=== PATIENT | male | born 1960 | race American Indian/Alaskan Native ===

== ENCOUNTER 2020-08-06 22:39 | Inpatient (IN) | payer OTHER ==
[2020-08-07 00:08] LABS: Basophils # (Auto) 0.1 K/mm3 (0.0-0.1); Basophils % (Auto) 1.5 % (0.0-1.8); Eosinophils # (Auto) 0.1 K/mm3 (0.0-0.4); Hematocrit 41.6 % (35.5-45.6); Hemoglobin 13.1 gm/dl (11.8-15.2); Lymphocytes # (Auto) 1.5 K/mm3 (1.2-5.4); Mean Corpuscular HGB Conc 32 % (32-34); Mean Corpuscular Volume 74 fl (84-94); Monocytes # (Auto) 0.4 K/mm3 (0.0-0.8); Monocytes % (Auto) 8.1 % (0.0-7.3); Platelet Count 192 K/mm3 (140-440); Red Blood Count 5.66 M/mm3 (3.65-5.03); Red Cell Distribution Width 13.8 % (13.2-15.2)
[2020-08-07 00:13] LABS: BUN/Creatinine Ratio 10; Blood Urea Nitrogen 12 mg/dL (9-20); Calcium 9.9 mg/dL (8.4-10.2); Hemolysis Index 14
[2020-08-07 00:17] LABS: INR 1.11 (0.87-1.13)
--- NOTE | 2020-08-07 01:19 | Cat Scan Report ---
CT head without contrast INDICATION : Headache. TECHNIQUE: Axial imaging performed from the skull apex through the skull base without the use of con trast. All CT examinations performed at this facility utilize dose modulation, iterative reconstruct ion or weight-based dosing, when appropriate, to reduce radiation dose to as low as reasonably achiev able. COMPARISON: None FINDINGS: No acute intracranial hemorrhage or parenchymal abnormality. Ventricles are normal in si ze and appear symmetric. Soft tissues including the orbits appear normal. No acute osseous abnorm ality. Sinuses and mastoid air cells are clear. IMPRESSION: No acute abnormality. Signer Name: Jose Hawk MD Signed: 08/07/2020 1:15 AM Workstation Name: [id number]
[2020-08-07] MEDS ORDERED: cloNIDine 0.2 MG TAB PO ONE (02:48)
[2020-08-07] MEDS ORDERED: ASPIRIN 325 MG TAB PO ONE (04:06)
--- NOTE | 2020-08-07 04:06 | Emergency Department Report ---
ED Neuro Deficit HPI - General Chief Complaint: High BP Stated Complaint: TROUBLE SPEAKING Time Seen by Provider: 08/07/20 03:49 Source: patient Mode of arrival: Ambulatory Limitations: No Limitations - History of Present Illness Initial Comments: 59-year-old male with a past medical history of hypertension and CAD with stent not currently on any meds presents to the hospital complaining of an episode of trouble speaking while at work 3 days ago and some memory problems 2 days ago. Patient states while at work he with think saying 1 thing and something else will come out off topic. His his words were comprehensible. Patient states he left his job and went home to sleep for 2 to 3 hours and he woke up the symptoms have resolved. The next day he had some mild memory issues such as trying to remember his email. Today he denies any neurologic complaints. He is not experiencing any headache, nausea, blurry vision, focal weakness, or numbness. He has been noncompliant with hypertensive medications for at least 1 year and is not currently on aspirin. - Related Data Home Medications: Home Medications Medication Instructions Recorded Confirmed Last Taken No Known Home Medications [No 08/07/20 08/07/20 Unknown Reported Home Medications] Allergies/Adverse Reactions: Allergies Allergy/AdvReac Type Severity Reaction Status Date / Time No Known Allergies Allergy Verified 07/05/14 18:54 ED Review of Systems ROS: Stated complaint: TROUBLE SPEAKING Other details as noted in HPI Comment: All other systems reviewed and negative ED Past Medical Hx - Past Medical History Previous Medical History?: Yes Hx Hypertension: Yes Additional medical history: Cardiac stent - Surgical History Past Surgical History?: Yes Additional Surgical History: Cardiac stent - Social History Smoking Status: Never Smoker Substance Use Type: None - Medications Home Medications: Home Medications Medication Instructions Recorded Confirmed Last Taken Type No Known Home Medications [No 08/07/20 08/07/20 Unknown History Reported Home Medications] ED Neuro Physical Exam - General Limitations: No Limitations Suspected Stroke: Yes - Neurological Exam Neurological exam: Present: alert - NIHSS Assessment Interval: Baseline 1a. Level of Consciousness: alert/keenly responsive 1b. LOC Questions: answers both correctly 1c. LOC Commands: performs tasks correctly 2. Best Gaze: normal 3. Visual: no visual loss 4. Facial Palsy: normal symmetrical movement 5b. Motor Arm Right: no drift 5a. Motor Arm Left: no drift 6a. Motor Leg Left: no drift 6b. Motor Leg Right: no drift 7. Limb Ataxia: absent 8. Sensory: normal 9. Best Language: no aphasia 10. Dysarthria: normal 11. Extinction/Inattention: no abnormality Total Score: 0 Stroke Severity: No Stroke Symptoms - Other Other exam information: General: No acute distress Head: Atraumatic Eyes: normal appearance ENT: Moist mucous membranes Neck: Normal appearance, no midline tenderness Chest: Clear to auscultation bilaterally CV: Regular rate and rhythm Abdomen: Soft, normal bowel sounds, nontender, nondistended, no rebound or guarding Back: Normal inspection Extremity: Normal inspection, full range of motion Neuro: Alert O x 3, no facial asymmetry, speech clear, no gross motor sensory deficit Psych: Appropriate behavior Skin: No rash ED Course Vital Signs 08/06/20 08/07/20 08/07/20 22:48 01:52 01:53 Temperature 98.1 F Pulse Rate 94 H 89 86 Respiratory 20 20 20 Rate Blood Pressure 255/149 Blood Pressure 257/159 [Right] O2 Sat by Pulse 94 96 95 Oximetry 08/07/20 08/07/20 08/07/20 02:00 02:30 02:51 Temperature Pulse Rate 79 73 Respiratory 13 Rate Blood Pressure 245/145 207/119 205/118 Blood Pressure [Right] O2 Sat by Pulse 93 Oximetry 08/07/20 08/07/20 08/07/20 03:00 03:30 04:00 Temperature Pulse Rate 66 63 80 Respiratory 18 17 19 Rate Blood Pressure 209/129 211/123 233/142 Blood Pressure [Right] O2 Sat by Pulse 93 92 97 Oximetry - Consultations Consultation #1: 08/07/20 04:11 Case discussed with teleneuro who will provide a consult. - Lab Data Result diagrams: 08/06/20 23:33 08/06/20 23:33 Lab Results 08/06/20 08/06/20 08/06/20 Range/Units 23:33 23:33 23:33 WBC 4.7 (4.5-11.0) K/mm3 RBC 5.66 H (3.65-5.03) M/mm3 Hgb 13.1 (11.8-15.2) gm/dl Hct 41.6 (35.5-45.6) % MCV 74 L (84-94) fl MCH 23 L (28-32) pg MCHC 32 (32-34) % RDW 13.8 (13.2-15.2) % Plt Count 192 (140-440) K/mm3 Lymph % (Auto) 32.0 (13.4-35.0) % [place] % (Auto) 8.1 H (0.0-7.3) % Eos % (Auto) 3.0 (0.0-4.3) % Baso % (Auto) 1.5 (0.0-1.8) % Lymph # (Auto) 1.5 (1.2-5.4) K/mm3 [facility] # (Auto) 0.4 (0.0-0.8) K/mm3 Eos # (Auto) 0.1 (0.0-0.4) K/mm3 Baso # (Auto) 0.1 (0.0-0.1) K/mm3 Seg Neutrophils % 55.4 (40.0-70.0) % Seg Neutrophils # 2.6 (1.8-7.7) K/mm3 PT 14.5 (12.2-14.9) Sec. INR 1.11 (0.87-1.13) APTT 33.0 (24.2-36.6) Sec. Thrombin Time (15.1-19.6) Sec. Sodium 142 (137-145) mmol/L Potassium 3.9 (3.6-5.0) mmol/L Chloride 101.0 (98-107) mmol/L Carbon Dioxide 28 (22-30) mmol/L Anion Gap 17 mmol/L BUN 12 (9-20) mg/dL Creatinine 1.2 (0.8-1.3) mg/dL Estimated GFR > 60 ml/min BUN/Creatinine Ratio 10 % Glucose 126 H (75-100) mg/dL Calcium 9.9 (8.4-10.2) mg/dL Troponin T < 0.010 (0.00-0.029) ng/mL 08/06/20 Range/Units 23:33 WBC (4.5-11.0) K/mm3 RBC (3.65-5.03) M/mm3 Hgb (11.8-15.2) gm/dl Hct (35.5-45.6) % MCV (84-94) fl MCH (28-32) pg MCHC (32-34) % RDW (13.2-15.2) % Plt Count (140-440) K/mm3 Lymph % (Auto) (13.4-35.0) % [facility] % (Auto) (0.0-7.3) % Eos % (Auto) (0.0-4.3) % Baso % (Auto) (0.0-1.8) % Lymph # (Auto) (1.2-5.4) K/mm3 [facility] [place] # (Auto) (0.0-0.8) K/mm3 Eos # (Auto) (0.0-0.4) K/mm3 Baso # (Auto) (0.0-0.1) K/mm3 Seg Neutrophils % (40.0-70.0) % Seg Neutrophils # (1.8-7.7) K/mm3 PT (12.2-14.9) Sec. INR (0.87-1.13) APTT (24.2-36.6) Sec. Thrombin Time 16.9 (15.1-19.6) Sec. Sodium (137-145) mmol/L Potassium (3.6-5.0) mmol/L Chloride (98-107) mmol/L Carbon Dioxide (22-30) mmol/L Anion Gap mmol/L BUN (9-20) mg/dL Creatinine (0.8-1.3) mg/dL Estimated GFR ml/min BUN/Creatinine Ratio % Glucose (75-100) mg/dL Calcium (8.4-10.2) mg/dL Troponin T (0.00-0.029) ng/mL - EKG Data -: EKG Interpreted by [facility] EKG shows normal: sinus rhythm, ST-T waves (LVH with repolarization) Rate: normal When compared to previous EKG there are: previous EKG unavailable - Radiology Data Radiology results: report reviewed CT head without contrast INDICATION : Headache. TECHNIQUE: Axial imaging performed from the skull apex through the skull base without the use of contrast. All CT examinations performed at this facility utilize dose modulation, iterative reconstruction or weight-based dosing, when appropriate, to reduce radiation dose to as low as reasonably achievable. COMPARISON: None FINDINGS: No acute intracranial hemorrhage or parenchymal abnormality. V entricles are normal in size and appear symmetric. Soft tissues including the orbits appear normal. No acute osseous abnormality. Sinuses and mastoid air cells are clear. IMPRESSION: No acute abnormality. - Medical Decision Making 67-year-old male with a past medical history of hypertension and CAD with stent noncompliant with medications for least 1 year presents to the hospital with probable TIA symptoms and elevated hypertension. EKG shows LVH. Patient denies chest pain. CT head unremarkable patient. Patient received clonidine 0.2 mg without any improvement in his blood pressure with actual increase in blood pressure measurement. Patient will be admitted for hypertensive emergency and stroke work-up and Cardene drip initiated in the ED. telemetry neuro consult obtained in the ED Critical Care Time: Yes Critical care time in (mins) excluding proc time.: 35 Critical care attestation.: If time is entered above; I have spent that time in minutes in the direct care of this critically ill patient, excluding procedure time. ED Disposition Clinical Impression: Hypertensive emergency, TIA (transient ischemic attack), H/O heart artery stent, Noncompliance with medication regimen Disposition: OP ADMIT IP TO THIS HOSP Is pt being admited?: Yes Condition: Stable
--- NOTE | 2020-08-07 04:30 | Consultation ---
History of Present Illness - Reason for Consult Consult date: 08/07/20 ams / intermittent speech difficulty - History of Present Illness [facility] Tele[facility]urology Consult Services Stat Consult Date of Service: 08/07/2020 04:05:04 Impression: Transient Ischemic Attack and hypertensive emergency and suspected hypertensive encephalopathy r/o press r/o tia r/o stroke Comments/Sign-Out: 59 year old man with PMH of hypertension, CAD s/p stent non compliant with antihypertensive medication and antiplatelet therapy presenting w intermittent confusion and memory issues as well as difficulty writing since Wednesday/Wednesday. Presenting w ypertensive emergency ahnd suspected hypertensive encephalopathy r/o press r/o tia r/o stroke CT HEAD: Showed No Acute Hemorrhage or Acute Core Infarct Metrics: [facility] Notification Time: 08/07/2020 04:05:04 Stamp Time: 08/07/2020 04:05:04 Callback Response Time: 08/07/2020 04:08:00 Video Start Time: 08/07/2020 04:12:51 Video End Time: 08/07/2020 04:24:26 Our recommendations are outlined below. Recommendations: Antiplatelet Therapy Initiate Aspirin 325 MG Daily Imaging Studies: MRI Head Without Contrast Echocardiogram - Transthoracic Echocardiogram Therapies: Physical Therapy, Occupational Therapy, Speech Therapy Assessment When Applicable Other WorkUp: Check Urinalysis Disposition: Neurology Follow Up Recommended Sign Out: Discussed with Emergency Department Provider Chief Complaint: intermittent speech difficulty History of Present Illness: Patient is a 59 year old Male. 59 year old man with PMH of hypertension, CAD s/p stent non compliant with antihypertensive medication and antiplatelet therapy presenting w intermittent confusion and memory issues as well as difficulty writing since Wednesday/Wednesday. She feels at his baseline currently but he was asked by family members to please go to the ER. His BP was initially 255/149 and has been receiving clonidine with minimal decreased in BP (and later elevation again). He denies headache or weakness or changes to speech currently. Past Medical History: Hypertension Coronary Artery Disease Anticoagulant use: No Antiplatelet use: No Examination: BP(216/127), Pulse(84), Blood Glucose(123) 1A: Level of Consciousness - Alert; keenly responsive + 0 1B: Ask Month and Age - Both Questions Right + 0 1C: Blink Eyes & Squeeze Hands - Performs Both Tasks + 0 2: Test Horizontal Extraocular Movements - Normal + 0 3: Test Visual Elias - No Visual Loss + 0 4: Test Facial Palsy (Use Grimace if Obtunded) - Normal symmetry + 0 5A: Test Left Arm Motor Drift - No Drift for 10 Seconds + 0 5B: Test Right Arm Motor Drift - No Drift for 10 Seconds + 0 6A: Test Left Leg Motor Drift - No Drift for 5 Seconds + 0 6B: Test Right Leg Motor Drift - No Drift for 5 Seconds + 0 7: Test Limb Ataxia (FNF/Heel-Jay) - No Ataxia + 0 8: Test Sensation - Normal; No sensory loss + 0 9: Test Language/Aphasia - Normal; No aphasia + 0 10: Test Dysarthria - Normal + 0 11: Test Extinction/Inattention - No abnormality + 0 NIHSS Score: 0 Patient/Family was informed the Neurology Consult would happen via TeleHealth consult by way of interactive audio and video telecommunications and consented to receiving care in this manner. Due to the immediate potential for life-threatening deterioration due to underlying acute neurologic illness, I spent 22 minutes providing critical care. This time includes time for face to face visit via telemedicine, review of medical records, imaging studies and discussion of findings with providers, the patient and/or family. Dr Beckie Kamara [facility] Case [id number] Medications and Allergies Allergies Allergy/AdvReac Type Severity Reaction Status Date / Time No Known Allergies Allergy Verified 07/05/14 18:54 Home Medications Medication Instructions Recorded Confirmed Last Taken Type No Known Home Medications [No 08/07/20 08/07/20 Unknown History Reported Home Medications] Active Meds: Active Medications Nicardipine HCl 50 mg/ Sodium (Chloride) 250 mls @ 25 mls/hr IV TITR NOEMI; Protocol Nicardipine/Sodium Chloride (Cardene Drip 40 Mg/200 Ml) 40 mg in 200 mls @ 25 mls/hr IV ONCE ONE Stop: 08/07/20 12:59 Exam - Constitutional Vitals: Temp Pulse Resp BP Pulse Ox 98.1 F 80 19 233/142 97 08/06/20 22:48 08/07/20 04:00 08/07/20 04:00 08/07/20 04:00 08/07/20 04:00 Results - Labs CBC & Chem 7: 08/06/20 23:33 08/06/20 23:33 Labs: Abnormal lab results 08/06/20 08/06/20 Range/Units 23:33 23:33 RBC 5.66 H (3.65-5.03) M/mm3 MCV 74 L (84-94) fl MCH 23 L (28-32) pg [place] % (Auto) 8.1 H (0.0-7.3) % Glucose 126 H (75-100) mg/dL
[2020-08-07] MEDS ORDERED: ONDANSETRON 4 MG/2 ML INJ IV PRN (04:34)
[2020-08-07] MEDS ORDERED: ACETAMINOPHEN 325 MG TAB PO PRN (04:34)
[2020-08-07] MEDS ORDERED: MAGNESIUM HYDROXIDE (MOM) ORAL LIQD UDC PO PRN (04:34)
[2020-08-07] MEDS ORDERED: PROMETHAZINE 25 MG RECT SUPP PR PRN (04:34)
[2020-08-07] MEDS ORDERED: METOCLOPRAMIDE 10 MG TAB PO PRN (04:34)
--- NOTE | 2020-08-07 04:36 | History and Physical Report ---
History of Present Illness Chief complaint: My blood pressure is high and I am talking funny History of present illness: 59 YO Male with HTN, CAD S/P Stent Placement presents to ED for evaluation. Patient states that he has experienced difficulty speaking over the past 3 days with persistent symptoms over the same timeframe. Patient states that he had word finding difficulty while at work followed by an episode of inability to speak. Patient states that he left his job and went home for 3 hours and woke up with resolution of symptoms. Patient states that the symptoms recurred the following day. Patient transported to [facility] via private vehicle for further care and evaluation of the aforementioned symptoms. Patient seen and evaluated in the emergency department. All lab and imaging studies reviewed. Patient found to have neurologic deficit which is consistent with CVA. Patient also found to have hypertensive emergency with a blood pressure of 257/159. Patient admitted to [facility] and initiated on stroke protocol as well as Cardene drip for hypertensive emergency. Patient denies fever, chills, chest pain, palpitations, productive cough, recent ill contacts, blurry vision, vertigo, syncope, trauma, known exposure to COVID-19. No medication listed at time of admission. No prior admission for review. Advanced care planning conducted in ED. Past History Past Medical History: CAD, hypertension Past Surgical History: Other (Cardiac stent placement) Social history: single Family history: no significant family history (See HPI) Medications and Allergies Allergies Allergy/AdvReac Type Severity Reaction Status Date / Time No Known Allergies Allergy Verified 07/05/14 18:54 Home Medications Medication Instructions Recorded Confirmed Last Taken Type No Known Home Medications [No 08/07/20 08/07/20 Unknown History Reported Home Medications] Active Meds: Active Medications Nicardipine HCl 50 mg/ Sodium (Chloride) 250 mls @ 25 mls/hr IV TITR NOEMI; Protocol Nicardipine/Sodium Chloride (Cardene Drip 40 Mg/200 Ml) 40 mg in 200 mls @ 25 mls/hr IV ONCE ONE Stop: 08/07/20 12:59 Review of Systems Constitutional: no weight loss, no weight gain, no fever, no sweats Ears, nose, mouth and throat: no ear pain, no tinnitis, no nose pain, no nasal congestion Cardiovascular: no chest pain, no orthopnea, no palpitations, no rapid/irregular heart beat, no syncope, no lightheadedness Respiratory: no cough, no cough with sputum, no hemoptysis, no shortness of breath Gastrointestinal: no abdominal pain, no vomiting, no diarrhea Genitourinary Male: no hematuria, no flank pain, no discharge, no urinary frequency, no urinary hesitancy Rectal: no pain, no incontinence, no bleeding Musculoskeletal: no neck stiffness, no neck pain, no arm numbness/tingling, no low back pain, no shooting leg pain Integumentary: no rash, no redness, no sores, no wounds, no boils Neurological: change in speech, no head injury, no transient paralysis, no paralysis, no parathesias, no tingling, no tremors, no lack of coordination Psychiatric: no anxiety, no insomnia, no hypersomnia, no change in appetite, no change in libido Endocrine: no cold intolerance, no polyphagia, no polyuria, no excessive sweating Hematologic/Lymphatic: no easy bruising, no easy bleeding, no lymphadenopathy, no lymphedema Allergic/Immunologic: no anaphylaxis, no angioedema Exam - Constitutional Vitals: Temp Pulse Resp BP Pulse Ox 98.1 F 80 19 233/142 97 08/06/20 22:48 08/07/20 04:00 08/07/20 04:00 08/07/20 04:00 08/07/20 04:00 General appearance: Present: mild distress - EENT Eyes: Present: PERRL ENT: hearing intact, clear oral mucosa - Neck Neck: Present: supple, normal ROM - Respiratory Respiratory effort: normal Respiratory: bilateral: CTA - Cardiovascular Heart Sounds: Present: S1 & S2. Absent: rub, click - Extremities Extremities: pulses symmetrical, No edema Peripheral Pulses: within normal limits - Abdominal General gastrointestinal: Present: soft, non-tender, non-distended, normal bowel sounds Male genitourinary: Present: normal - Integumentary Integumentary: Present: clear, warm, dry - Musculoskeletal Musculoskeletal: gait normal, strength equal bilaterally - Psychiatric Psychiatric: appropriate mood/affect, intact judgment & insight - Neurologic Neurologic: CNII-XII intact, moves all extremities HEART Score - HEART Score Troponin: Troponin T < 0.010 ng/mL (0.00-0.029) 08/06/20 23:33 Results - Labs CBC & Chem 7: 08/06/20 23:33 08/06/20 23:33 Labs: Abnormal lab results 08/06/20 08/06/20 Range/Units 23:33 23:33 RBC 5.66 H (3.65-5.03) M/mm3 MCV 74 L (84-94) fl MCH 23 L (28-32) pg Rogers % (Auto) 8.1 H (0.0-7.3) % Glucose 126 H (75-100) mg/dL Assessment and Plan - Patient Problems (1) Hypertensive emergency Current Visit: Yes Status: Acute Plan to address problem: Monitor blood pressure every shift, Cardene drip, goal blood pressure overnight between 165 and 195 mmHg, permissive hypertension overnight. (2) CVA (cerebral vascular accident) Current Visit: Yes Status: Acute Plan to address problem: CVA protocol: CT scan of the head, carotid Doppler, neuro check, seizure precautions, aspiration precautions, physical therapy consulted, Occupational Therapy consulted, speech therapy consulted, antiplatelet therapy, teleneurology consulted in ED, (3) DVT prophylaxis Current Visit: Yes Status: Acute Plan to address problem: SCD to bilateral lower extremities while in bed, patient is ambulatory (4) Advance care planning Current Visit: Yes Status: Acute Plan to address problem: Disease education conducted, patient prognosis discussed, patient is full code, care plan discussed, patient knowledges understanding and agreement with care plan, +30 minutes.
[2020-08-07] MEDS ORDERED: niCARdipine 50 MG in SODIUM CHLORIDE 0.9% 250ML 230 ML IV SCH (05:00)
[2020-08-07] MEDS ORDERED: niCARdipine DRIP 40 MG/200 ML BAG IV ONE (05:00)
[2020-08-07] MEDS: niCARdipine DRIP 40 MG/200 ML BAG IV ONE ×2 (09:43→15:28)
--- NOTE | 2020-08-07 12:19 | Vascular Lab Report ---
BILATERAL CAROTID DOPPLER ULTRASOUND INDICATION : stroke TECHNIQUE: Grayscale and color Doppler imaging performed through the neck. COMPARISON: None FINDINGS: Right: There is no significant atherosclerotic disease. Peak systolic velocity in the CCA is 117 cm /s with end-diastolic velocity of 14 cm/s. Peak systolic velocity in the proximal ICA is 78 cm/s with end-diastolic velocity of 15 cm/s. ICA to CCA ratio is less than 2. There is antegrade flow in the ECA and the vertebral artery. Left: There is no significant atherosclerotic disease. Peak systolic velocity in the CCA is 99 cm/s w ith end-diastolic velocity of 14 cm/s. Peak systolic velocity in the proximal ICA is 97 cm/s with end -diastolic velocity of 20 cm/s. ICA to CCA ratio is less than 2. There is antegrade flow in the ECA and the vertebral artery. IMPRESSION: No hemodynamically significant stenosis by NASCET criteria. Doppler velocities indicate l ess than 50% luminal narrowing bilaterally. Signer Name: Odin Taylor Jr, MD Signed: 08/07/2020 12:14 PM Workstation Name: [id number]
[2020-08-07] MEDS: carvediloL 6.25 MG TAB PO SCH (12:35)
[2020-08-07] MEDS ORDERED: niCARdipine DRIP 40 MG/200 ML BAG ONE (15:26)
[2020-08-08] MEDS: carvediloL 6.25 MG TAB PO SCH (01:54)
[2020-08-08 06:05] LABS: Chol/HDL Ratio 6.42 %
[2020-08-08] MEDS ORDERED: carvediloL 6.25 MG TAB PO SCH (08:38)
[2020-08-08] MEDS ORDERED: carvediloL 25 MG TAB PO SCH (10:00)
[2020-08-08] MEDS ORDERED: amLODIPine 10 MG TAB PO SCH (11:00)
--- NOTE | 2020-08-08 11:02 | Magnetic Resonance Report ---
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 TECHNIQUE: Multiplanar, multisequence MR images of the brain were obtained. COMPARISON: No previous MRI exams available for comparison. FINDINGS: The motion degrades the image quality despite using a fast acquisition sequences. However, there is e xtensive cerebral white matter disease most notably involving the periventricular regions and most co nsistent with microvascular angiopathy. 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 Th e diffusion imaging reveals no evidence of acute infarction. There is mild cerebral atrophy. The ventricular system is correspondingly appropriate in size and con figuration. No extra-axial fluid collections or significant mass effect is identified. CRANIOCERVICAL JUNCTION: No significant abnormality. VASCULAR FLOW-VOIDS: There is medial course of the cavernous segments of the ICAs bilaterally which r epresent a developmental variant. The intracranial vessels grossly demonstrate appropriate signal voi ds. ORBITS: No significant abnormality of visualized orbits. SINUSES / MASTOIDS: There is mild mucosal thickening along the posterior right ethmoid air cells. ADDITIONAL FINDINGS: None. IMPRESSION: 1. There is extensive microvascular angiopathy as described without evidence of acute infarction. Signer Name: Paresh Mcdaniel MD Signed: 08/08/2020 9:13 AM Workstation Name: [id number]
--- NOTE | 2020-08-08 12:13 | Progress Note ---
<ADINAALBERT SageWei - Last Filed: 08/08/20 15:38> Assessment and Plan - Patient Problems (1) Hypertensive encephalopathy Current Visit: Yes Status: Acute Plan to address problem: 08/07 CT head shows no acute intracranial hemorrhage or parenchymal abnormality. 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 Lipitor, aspirin therapy PT/OT consult; ST recommends regular diet with regular/thin liquids. PT consult still pending as pt had a missed variance Aspiration, seizure and fall precautions Blood pressure control, amlodipine and coreg (2) CVA (cerebral vascular accident) Current Visit: Yes Status: Ruled-out Plan to address problem: 08/07 CT head shows no acute intracranial hemorrhage or parenchymal abnormality. 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 Lipitor, aspirin therapy PT/OT consult; ST recommends regular diet with regular/thin liquids. PT consult still pending as pt had a missed variance Aspiration, seizure and fall precautions (3) Hypertensive emergency Current Visit: Yes Status: Acute Plan to address problem: Admit presentation BP 257/159 S/p clonidine and beta-najma in the ED S/p milrinone drip Initiated on CCB and BB for BP control, added ACEi Blood pressure monitor per protocol As needed hydralazine for SBP> 160 (4) H/O heart artery stent Current Visit: Yes Status: Acute Plan to address problem: Statin therapy (5) Noncompliance with medication regimen Current Visit: Yes Status: Acute Plan to address problem: Patient stated that he does not have a PCP Medical compliance encouraged Encouraged to obtain a PCP for outpatient care (6) DVT prophylaxis Current Visit: Yes Status: Acute Plan to address problem: SCDs to bilateral lower extremities while in bed Heparin subcu History Interval history: 59 YO Male with HTN, CAD S/P Stent Placement presents to ED on 08/07 with difficulty speaking for the past 3 days with word finding difficulty while at work followed by an episode of inability to speak. He was in hypertensive emergency with a blood pressure of 257/159 and admitted to [facility] and initiated on stroke protocol as well as Cardene drip for hypertensive emergency. Patient is now on 4T. At the time of examination he does not have any deficits and was able to converse with me. Patient had an MRI brain, echocardiogram and carotid ultrasound today. He states that he also seen by physical therapy today. No acute events reported overnight. Hospitalist Physical - Constitutional Vitals: Temp Pulse Resp BP Pulse Ox 98.8 F 83 16 171/105 95 08/08/20 11:35 08/08/20 11:35 08/08/20 11:35 08/08/20 11:35 08/08/20 11:35 General appearance: Present: no acute distress - EENT Eyes: Present: PERRL, EOM intact ENT: hearing intact, clear oral mucosa, dentition normal - Neck Neck: Present: supple, normal ROM - Respiratory Respiratory effort: normal Respiratory: bilateral: CTA - Cardiovascular Rhythm: regular Heart Sounds: Present: S1 & S2. Absent: systolic murmur, diastolic murmur - Extremities Extremities: no ischemia, pulses intact, pulses symmetrical, No edema, normal temperature, normal color, Full ROM Peripheral Pulses: within normal limits - Abdominal General gastrointestinal: soft, non-tender, non-distended, normal bowel sounds - Integumentary Integumentary: Present: clear, warm, dry - Psychiatric Psychiatric: appropriate mood/affect, cooperative - Neurologic Neurologic: CNII-XII intact, no focal deficits, moves all extremities - Allied Health Allied health notes reviewed: nursing, PT, ST, OT HEART Score - HEART Score Troponin: Troponin T < 0.010 ng/mL (0.00-0.029) 08/06/20 23:33 Results - Labs CBC & Chem 7: 08/06/20 23:33 08/06/20 23:33 Labs: Laboratory Last Values WBC 4.7 K/mm3 (4.5-11.0) 08/06/20 23:33 RBC 5.66 M/mm3 (3.65-5.03) H 08/06/20 23:33 Hgb 13.1 gm/dl (11.8-15.2) 08/06/20 23:33 Hct 41.6 % (35.5-45.6) 08/06/20 23:33 MCV 74 fl (84-94) L 08/06/20 23:33 MCH 23 pg (28-32) L 08/06/20 23:33 MCHC 32 % (32-34) 08/06/20 23:33 RDW 13.8 % (13.2-15.2) 08/06/20 23:33 Plt Count 192 K/mm3 (140-440) 08/06/20 23:33 Lymph % (Auto) 32.0 % (13.4-35.0) 08/06/20 23:33 Jackson % (Auto) 8.1 % (0.0-7.3) H 08/06/20 23:33 Eos % (Auto) 3.0 % (0.0-4.3) 08/06/20 23:33 Baso % (Auto) 1.5 % (0.0-1.8) 08/06/20 23:33 Lymph # (Auto) 1.5 K/mm3 (1.2-5.4) 08/06/20 23:33 Jackson # (Auto) 0.4 K/mm3 (0.0-0.8) 08/06/20 23:33 Eos # (Auto) 0.1 K/mm3 (0.0-0.4) 08/06/20 23:33 Baso # (Auto) 0.1 K/mm3 (0.0-0.1) 08/06/20 23:33 Seg Neutrophils % 55.4 % (40.0-70.0) 08/06/20 23:33 Seg Neutrophils # 2.6 K/mm3 (1.8-7.7) 08/06/20 23:33 PT 14.5 Sec. (12.2-14.9) 08/06/20 23:33 INR 1.11 (0.87-1.13) 08/06/20 23:33 APTT 33.0 Sec. (24.2-36.6) 08/06/20 23:33 Thrombin Time 16.9 Sec. (15.1-19.6) 08/06/20 23:33 Sodium 142 mmol/L (137-145) 08/06/20 23:33 Potassium 3.9 mmol/L (3.6-5.0) 08/06/20 23:33 Chloride 101.0 mmol/L (98-107) 08/06/20 23:33 Carbon Dioxide 28 mmol/L (22-30) 08/06/20 23:33 Anion Gap 17 mmol/L 08/06/20 23:33 BUN 12 mg/dL (9-20) 08/06/20 23:33 Creatinine 1.2 mg/dL (0.8-1.3) 08/06/20 23:33 Estimated GFR > 60 ml/min 08/06/20 23:33 BUN/Creatinine Ratio 10 % 08/06/20 23:33 Glucose 126 mg/dL (75-100) H 08/06/20 23:33 POC Glucose 97 mg/dL (70-105) 08/07/20 23:54 Calcium 9.9 mg/dL (8.4-10.2) 08/06/20 23:33 Troponin T < 0.010 ng/mL (0.00-0.029) 08/06/20 23:33 Triglycerides 140 mg/dL (2-149) 08/08/20 05:10 Cholesterol 212 mg/dL (50-199) H 08/08/20 05:10 LDL Cholesterol Direct 168 mg/dL (50-130) H 08/08/20 05:10 HDL Cholesterol 33 mg/dL (40-59) L 08/08/20 05:10 Cholesterol/HDL Ratio 6.42 % 08/08/20 05:10 Purcell/IV: Voiding Method Toilet IV Catheter Type [Left Hand] Peripheral IV Active Medications - Current Medications Current Medications: Generic Name Dose Route Start Last Admin Trade Name Freq PRN Reason Stop Dose Admin Acetaminophen 650 mg 08/07/20 04:34 Tylenol PO Q4H PRN Pain, Mild (1-3) Amlodipine Besylate 10 mg 08/08/20 11:00 08/08/20 10:30 Amlodipine PO 10 mg QDAY NOEMI Administration Atorvastatin Calcium 40 mg 08/07/20 22:00 08/08/20 01:55 Lipitor PO Not Given QHS NOEMI Bisacodyl 10 mg 08/07/20 04:34 Dulcolax [place] QDAY PRN Constipation Carvedilol 25 mg 08/08/20 10:00 08/08/20 10:30 Coreg PO 25 mg BID NOEMI Administration Magnesium Hydroxide 30 ml 08/07/20 04:34 Milk Of Magnesia PO Q4H PRN Constipation Metoclopramide HCl 10 mg 08/07/20 04:34 Reglan PO Q6H PRN Nausea And Vomiting Ondansetron HCl 4 mg 08/07/20 04:34 Zofran IV Q8H PRN Nausea And Vomiting Promethazine HCl 25 mg 08/07/20 04:34 Phenergan [place] Q6H PRN Nausea And Vomiting Sodium Chloride 10 ml 08/07/20 04:34 Sodium Chloride Flush Syringe 10 Ml IV PRN PRN LINE FLUSH <ALEKSANDER CHAIDEZ - Last Filed: 08/08/20 16:57> Assessment and Plan Assessment and plan: I agree with history, examination and assessment and plan as written by Albert Cullen NP. Neurology recs appreciated MRI shows no new stroke. Control BP. Hospitalist Physical - Constitutional Vitals: Temp Pulse Resp BP Pulse Ox 98.6 F 77 16 174/86 94 08/08/20 16:22 08/08/20 16:22 08/08/20 16:22 08/08/20 16:22 08/08/20 16:22 HEART Score - HEART Score Troponin: Troponin T < 0.010 ng/mL (0.00-0.029) 08/06/20 23:33 Results - Labs CBC & Chem 7: 08/06/20 23:33 08/06/20 23:33 Labs: Laboratory Last Values WBC 4.7 K/mm3 (4.5-11.0) 08/06/20 23:33 RBC 5.66 M/mm3 (3.65-5.03) H 08/06/20 23:33 Hgb 13.1 gm/dl (11.8-15.2) 08/06/20 23:33 Hct 41.6 % (35.5-45.6) 08/06/20 23:33 MCV 74 fl (84-94) L 08/06/20 23:33 MCH 23 pg (28-32) L 08/06/20 23:33 MCHC 32 % (32-34) 08/06/20 23:33 RDW 13.8 % (13.2-15.2) 08/06/20 23:33 Plt Count 192 K/mm3 (140-440) 08/06/20 23:33 Lymph % (Auto) 32.0 % (13.4-35.0) 08/06/20 23:33 Jackson % (Auto) 8.1 % (0.0-7.3) H 08/06/20 23:33 Eos % (Auto) 3.0 % (0.0-4.3) 08/06/20 23:33 Baso % (Auto) 1.5 % (0.0-1.8) 08/06/20 23:33 Lymph # (Auto) 1.5 K/mm3 (1.2-5.4) 08/06/20 23:33 Jackson # (Auto) 0.4 K/mm3 (0.0-0.8) 08/06/20 23:33 Eos # (Auto) 0.1 K/mm3 (0.0-0.4) 08/06/20 23:33 Baso # (Auto) 0.1 K/mm3 (0.0-0.1) 08/06/20 23:33 Seg Neutrophils % 55.4 % (40.0-70.0) 08/06/20 23:33 Seg Neutrophils # 2.6 K/mm3 (1.8-7.7) 08/06/20 23:33 PT 14.5 Sec. (12.2-14.9) 08/06/20 23:33 INR 1.11 (0.87-1.13) 08/06/20 23:33 APTT 33.0 Sec. (24.2-36.6) 08/06/20 23:33 Thrombin Time 16.9 Sec. (15.1-19.6) 08/06/20 23:33 Sodium 142 mmol/L (137-145) 08/06/20 23:33 Potassium 3.9 mmol/L (3.6-5.0) 08/06/20 23:33 Chloride 101.0 mmol/L (98-107) 08/06/20 23:33 Carbon Dioxide 28 mmol/L (22-30) 08/06/20 23:33 Anion Gap 17 mmol/L 08/06/20 23:33 BUN 12 mg/dL (9-20) 08/06/20 23:33 Creatinine 1.2 mg/dL (0.8-1.3) 08/06/20 23:33 Estimated GFR > 60 ml/min 08/06/20 23:33 BUN/Creatinine Ratio 10 % 08/06/20 23:33 Glucose 126 mg/dL (75-100) H 08/06/20 23:33 POC Glucose 99 mg/dL (70-105) 08/08/20 16:37 Calcium 9.9 mg/dL (8.4-10.2) 08/06/20 23:33 Troponin T < 0.010 ng/mL (0.00-0.029) 08/06/20 23:33 Triglycerides 140 mg/dL (2-149) 08/08/20 05:10 Cholesterol 212 mg/dL (50-199) H 08/08/20 05:10 LDL Cholesterol Direct 168 mg/dL (50-130) H 08/08/20 05:10 HDL Cholesterol 33 mg/dL (40-59) L 08/08/20 05:10 Cholesterol/HDL Ratio 6.42 % 08/08/20 05:10 Purcell/IV: Voiding Method Toilet IV Catheter Type [Left Hand] Peripheral IV Active Medications - Current Medications Current Medications: Generic Name Dose Route Start Last Admin Trade Name Freq PRN Reason Stop Dose Admin Acetaminophen 650 mg 08/07/20 04:34 Tylenol PO Q4H PRN Pain, Mild (1-3) Amlodipine Besylate 10 mg 08/08/20 11:00 08/08/20 10:30 Amlodipine PO 10 mg QDAY NOEMI Administration Aspirin 325 mg 08/08/20 13:00 08/08/20 14:52 Aspirin PO 325 mg QDAY NOEMI Administration Atorvastatin Calcium 40 mg 08/07/20 22:00 08/08/20 01:55 Lipitor PO Not Given QHS NOEMI Bisacodyl 10 mg 08/07/20 04:34 Dulcolax TX QDAY PRN Constipation Carvedilol 25 mg 08/08/20 10:00 08/08/20 10:30 Coreg PO 25 mg BID NOEMI Administration Hydralazine HCl 10 mg 08/08/20 12:43 08/08/20 15:46 Apresoline IV 10 mg Q4HR PRN Administration Hypertension Magnesium Hydroxide 30 ml 08/07/20 04:34 Milk Of Magnesia PO Q4H PRN Constipation Metoclopramide HCl 10 mg 08/07/20 04:34 Reglan PO Q6H PRN Nausea And Vomiting Ondansetron HCl 4 mg 08/07/20 04:34 Zofran IV Q8H PRN Nausea And Vomiting Promethazine HCl 25 mg 08/07/20 04:34 Phenergan TX Q6H PRN Nausea And Vomiting Sodium Chloride 10 ml 08/07/20 04:34 Sodium Chloride Flush Syringe 10 Ml IV PRN PRN LINE FLUSH
[2020-08-08] MEDS ORDERED: hydrALAZINE 20 MG/1 ML INJ IV PRN (12:43)
[2020-08-08] MEDS ORDERED: ASPIRIN EC 81 MG TAB PO SCH (13:00)
[2020-08-08] MEDS: ASPIRIN 325 MG TAB PO SCH (14:52)
--- NOTE | 2020-08-08 16:46 | Consultation ---
History of Present Illness Consult date: 08/08/20 Reason for Consult: trouble speaking while at work 3 days ago History of present illness: This is a comprehensive neurological consultation on Mr. Edison Knowles who is a very pleasant 59-year-old gentleman admitted with the symptoms of trouble speaking while at work 3 days ago. He also reported some decreased memory but there was no focal weakness. He reported that he has history of high blood pressure for last 6-7 years and it has not been under well control. He stopped taking his medicine for blood pressure for almost a year. He also has history of coronary artery disease and stent placement. He denied any focal arms or leg weakness while he was admitted. He thinks that he still has some confusion and disorientation but it is slightly getting better. He denied that he ever had any stroke. His MRI of the brain revealed old left fish radiate stroke but there is no evidence of any new stroke at this time.he also admitted that he was not taking any aspirin in the past. His carotid Doppler study did not show any stenotic lesion at this time. 2D echo has been performed but the result is still pending. Past History Past Medical History: CAD, hypertension Past Surgical History: Other (Cardiac stent placement) Social history: single Family history: no significant family history (See HPI) Medications and Allergies Allergies Allergy/AdvReac Type Severity Reaction Status Date / Time No Known Allergies Allergy Verified 08/07/20 07:57 Home Medications Medication Instructions Recorded Confirmed Last Taken Type No Known Home Medications [No 08/07/20 08/07/20 Unknown History Reported Home Medications] Active Meds: Active Medications Acetaminophen (Tylenol) 650 mg PO Q4H PRN PRN Reason: Pain, Mild (1-3) Amlodipine Besylate (Amlodipine) 10 mg PO QDAY [facility] Last Admin: 08/08/20 10:30 Dose: 10 mg Documented by: Aspirin (Aspirin) 325 mg PO QDAY [facility] Last Admin: 08/08/20 14:52 Dose: 325 mg Documented by: Atorvastatin Calcium (Lipitor) 40 mg PO QHS [facility] Last Admin: 08/08/20 01:55 Dose: Not Given Documented by: Bisacodyl (Dulcolax) 10 mg OR QDAY PRN PRN Reason: Constipation Carvedilol (Coreg) 25 mg PO BID [facility] Last Admin: 08/08/20 10:30 Dose: 25 mg Documented by: Hydralazine HCl (Apresoline) 10 mg IV Q4HR PRN PRN Reason: Hypertension Last Admin: 08/08/20 15:46 Dose: 10 mg Documented by: Magnesium Hydroxide (Milk Of Magnesia) 30 ml PO Q4H PRN PRN Reason: Constipation Metoclopramide HCl (Reglan) 10 mg PO Q6H PRN PRN Reason: Nausea And Vomiting Ondansetron HCl (Zofran) 4 mg IV Q8H PRN PRN Reason: Nausea And Vomiting Promethazine HCl (Phenergan) 25 mg OR Q6H PRN PRN Reason: Nausea And Vomiting Sodium Chloride (Sodium Chloride Flush Syringe 10 Ml) 10 ml IV PRN PRN PRN Reason: LINE FLUSH Review of Systems All systems: negative (some confusion and disorientation) Physical Examination - Vital Signs Vital Signs: Vital Signs Temp Pulse Resp BP Pulse Ox 98.1 F 94 H 20 255/149 94 08/06/20 22:48 08/06/20 22:48 08/06/20 22:48 08/06/20 22:48 08/06/20 22:48 - Constitutional General appearance: comfortable - EENT EENT: Present: ATNC, PERRL, hearing intact, vision intact - Neurologic Cranial nerve examination: PERRL, EOMI, V1/V2/V3 grossly intact, face symmetric, tongue midline, intact shoulder shrug Speech examination: intact Sensorimotor examination: intact Detailed sensory examination: intact Posture: other (not tested) Reflex and gait examination: other (not tested) Cerebellar examination: other (normal) Results - Laboratory Findings CBC and BMP: 08/06/20 23:33 08/06/20 23:33 Abnormal Lab Findings: Abnormal Labs 08/06/20 08/06/20 08/08/20 23:33 23:33 05:10 RBC 5.66 H MCV 74 L MCH 23 L [place] % (Auto) 8.1 H Glucose 126 H Cholesterol 212 H LDL Cholesterol Direct 168 H HDL Cholesterol 33 L - Diagnostic Findings Additional findings: MRI of brain revealed old left coronary radiator stroke, no acute changes. Carotid Doppler study is negative for any stenotic lesion. 2D echoreport is pending Assessment and Plan - Patient Problems (1) Hypertensive emergency Current Visit: Yes Status: Acute Plan to address problem: Plan: 1) Keep blood pressure<185/100 millimeters of mercury for 3 days after initiation of symptoms, then bring it down to 130-140/80 millimeters of mercury range with the help of antihypertensive medicine. Patient may need to be consulted by a vice president of news or a enterprise integration developer to figure out what is the best medicine to keep his blood pressure under control and see if he needs any furthe r testing to find out why he has malignant hypertension. I have advised him about salt restriction and exercise at this time. 2) Patient must follow with the primary care physician once he gets discharged. 3) Patient also needs education about compliance of taking his medication and the risk of recurrent symptoms. (2) TIA (transient ischemic attack) Current Visit: Yes Status: Acute Plan to address problem: Plan: 1) It is reasonable that he may have had left hemispheric TIA given the MRI of brain finding which revealed old left fish radiata stroke. His symptoms may have been originated due to malignant hypertension. 2) Continue aspirin and cholesterol-lowering medicine as prescribed but to re emphasize about the compliance of these medication and follow with her local neurologist upon discharge home. 3) Please provide him prevention of secondary stroke education. I discussed at great length with the patient regarding his condition and possible treatment options. I answered multiple questions posed by the patient to his best satisfaction. Patient agreed with the plan. Thank you very much for allowing us in the care of your patient. Please call us if you have any questions. Christal Ramos MD Tele-neurologist [phone]
[2020-08-08] MEDS: VALSARTAN 160MG TAB PO SCH (21:47)
--- NOTE | 2020-08-09 09:14 | Progress Note ---
Assessment and Plan - Patient Problems (1) TIA (transient ischemic attack) Current Visit: Yes Status: Acute Plan to address problem: 08/07 CT head shows no acute intracranial hemorrhage or parenchymal abnormality. 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 Lipitor, aspirin therapy PT/OT consult; ST recommends regular diet with regular/thin liquids. PT consult completed with no acute recommendations. OT consult completed which identified no acute needs at this time. Aspiration, seizure and fall precautions 08/08 RN reported bradycardia after IVP hydralazine was administered Antihypertensive regimen: Hydralazine PO, Coreg, valsartan (2) Hypertensive encephalopathy Current Visit: Yes Status: Acute Plan to address problem: 08/07 CT head shows no acute intracranial hemorrhage or parenchymal abnormality. 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 Lipitor, aspirin therapy PT/OT consult; ST recommends regular diet with regular/thin liquids. PT consult completed with no acute recommendations. OT consult completed which identified no acute needs at this time. Aspiration, seizure and fall precautions 08/08 RN reported bradycardia after IVP hydralazine was administered Antihypertensive regimen: Hydralazine PO, Coreg, valsartan (3) CVA (cerebral vascular accident) Current Visit: Yes Status: Ruled-out Plan to address problem: 08/07 CT head shows no acute intracranial hemorrhage or parenchymal abnormality. 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 Lipitor, aspirin therapy PT/OT consult; ST recommends regular diet with regular/thin liquids. PT consult still pending as pt had a missed variance Aspiration, seizure and fall precautions (4) Hypertensive emergency Current Visit: Yes Status: Acute Plan to address problem: Admit presentation BP 257/159 S/p clonidine and beta-najma in the ED S/p milrinone drip Initiated on CCB and BB for BP control, added ACEi Blood pressure monitor per protocol As needed hydralazine for SBP> 160 (5) H/O heart artery stent Current Visit: Yes Status: Acute Plan to address problem: Statin therapy (6) Noncompliance with medication regimen Current Visit: Yes Status: Acute Plan to address problem: Patient stated that he does not have a PCP Medical compliance encouraged Encouraged to obtain a PCP for outpatient care Spoke to therapeutic case manager on 08/09, Harper, who notified me that the patient was given resources for continued health care and medications earlier this week; therefore CM consult was not placed (7) DVT prophylaxis Current Visit: Yes Status: Acute Plan to address problem: SCDs to bilateral lower extremities while in bed Heparin subcu History Interval history: 59 YO Male with HTN, CAD S/P Stent Placement presents to ED on 08/07 with difficulty speaking for the past 3 days with word finding difficulty while at work followed by an episode of inability to speak. He was in hypertensive emergency with a blood pressure of 257/159 and admitted to IMCU and initiated on stroke protocol as well as Cardene drip for hypertensive emergency. Patient is now on 4T. Patient exhibits no neuro deficits. He still remains hypertensive therefore he was started on valsartan last night and this morning he was started on hydralazine and Coreg. We will continue to monitor and he will have a possible discharge today if his blood pressure is better controlled. 08/08: MRI brain, bilateral carotid US, and echocardiogram completed. Patient remained hypertensive, RN reported bradycardia after hydralazine IVP admin. PT/OT consult completed, no acute recommendations. Hospitalist Physical - Constitutional Vitals: Temp Pulse Resp BP Pulse Ox 98.7 F 77 16 175/107 95 08/09/20 08:16 08/09/20 08:16 08/09/20 08:16 08/09/20 08:16 08/09/20 08:16 General appearance: Present: no acute distress - EENT Eyes: Present: PERRL, EOM intact ENT: hearing intact, clear oral mucosa, dentition normal - Neck Neck: Present: supple, normal ROM - Respiratory Respiratory effort: normal Respiratory: bilateral: CTA - Cardiovascular Rhythm: regular Heart Sounds: Present: S1 & S2. Absent: systolic murmur, diastolic murmur - Extremities Extremities: no ischemia, pulses intact, pulses symmetrical, No edema, normal temperature, normal color, Full ROM - Abdominal General gastrointestinal: soft, non-tender, non-distended, normal bowel sounds - Integumentary Integumentary: Present: clear, warm, dry - Psychiatric Psychiatric: appropriate mood/affect, cooperative - Neurologic Neurologic: CNII-XII intact, no focal deficits, moves all extremities - Allied Health Allied health notes reviewed: nursing HEART Score - HEART Score Troponin: Troponin T < 0.010 ng/mL (0.00-0.029) 08/06/20 23:33 Results - Labs CBC & Chem 7: 08/06/20 23:33 08/06/20 23:33 Labs: Laboratory Last Values WBC 4.7 K/mm3 (4.5-11.0) 08/06/20 23:33 RBC 5.66 M/mm3 (3.65-5.03) H 08/06/20 23:33 Hgb 13.1 gm/dl (11.8-15.2) 08/06/20 23:33 Hct 41.6 % (35.5-45.6) 08/06/20 23:33 MCV 74 fl (84-94) L 08/06/20 23:33 MCH 23 pg (28-32) L 08/06/20 23: MCHC 32 % (32-34) 08/06/20 23:33 RDW 13.8 % (13.2-15.2) 08/06/20 23: Plt Count 192 K/mm3 (140-440) 08/06/20 23:33 Lymph % (Auto) 32.0 % (13.4-35.0) 08/06/20 23:33 Ross % (Auto) 8.1 % (0.0-7.3) H 08/06/20 23:33 Eos % (Auto) 3.0 % (0.0-4.3) 08/06/20 23: Baso % (Auto) 1.5 % (0.0-1.8) 08/06/20 23:33 Lymph # (Auto) 1.5 K/mm3 (1.2-5.4) 08/06/20 23:33 Ross # (Auto) 0.4 K/mm3 (0.0-0.8) 08/06/20 23:33 Eos # (Auto) 0.1 K/mm3 (0.0-0.4) 08/06/20 23:33 Baso # (Auto) 0.1 K/mm3 (0.0-0.1) 08/06/20 23:33 Seg Neutrophils % 55.4 % (40.0-70.0) 08/06/20 23:33 Seg Neutrophils # 2.6 K/mm3 (1.8-7.7) 08/06/20 23:33 PT 14.5 Sec. (12.2-14.9) 08/06/20 23:33 INR 1.11 (0.87-1.13) 08/06/20 23:33 APTT 33.0 Sec. (24.2-36.6) 08/06/20 23:33 Thrombin Time 16.9 Sec. (15.1-19.6) 08/06/20 23:33 Sodium 142 mmol/L (137-145) 08/06/20 23:33 Potassium 3.9 mmol/L (3.6-5.0) 08/06/20 23:33 Chloride 101.0 mmol/L (98-107) 08/06/20 23:33 Carbon Dioxide 28 mmol/L (22-30) 08/06/20 23:33 Anion Gap 17 mmol/L 08/06/20 23:33 BUN 12 mg/dL (9-20) 08/06/20 23:33 Creatinine 1.2 mg/dL (0.8-1.3) 08/06/20 23:33 Estimated GFR > 60 ml/min 08/06/20 23:33 BUN/Creatinine Ratio 10 % 08/06/20 23:33 Glucose 126 mg/dL (75-100) H 08/06/20 23:33 POC Glucose 99 mg/dL (70-105) 08/08/20 16:37 Calcium 9.9 mg/dL (8.4-10.2) 08/06/20 23:33 Troponin T < 0.010 ng/mL (0.00-0.029) 08/06/20 23:33 Triglycerides 140 mg/dL (2-149) 08/08/20 05:10 Cholesterol 212 mg/dL (50-199) H 08/08/20 05:10 LDL Cholesterol Direct 168 mg/dL (50-130) H 08/08/20 05:10 HDL Cholesterol 33 mg/dL (40-59) L 08/08/20 05:10 Cholesterol/HDL Ratio 6.42 % 08/08/20 05:10 - Diagnostic Impressions Diagnostic Impressions: Echocardiogram 08/07/20 04:35 Transthoracic Echocardiogram Indication: Stroke BP: 171/105 HR: 74 Conclusions *Global left ventricular systolic function is normal. *The estimated ejection fraction is 60-65%. *Moderate to severe concentric left ventricular hypertrophy is observed. *There is mild mitral regurgitation. *There is trace tricuspid regurgitation. *A patent foramen ovale is not demonstrated by agitated saline contrast. Findings Left Ventricle: The left ventricular chamber size is normal. Moderate to severe concentric left ventricular hypertrophy is observed. Global left ventricular systolic function is normal. The estimated ejection fraction is 60-65%. Left Atrium: The left atrial chamber size is normal. Right Ventricle: The right ventricular cavity size is normal. The right ventricular global systolic function is normal. Right Atrium: The right atrial cavity size is normal. A patent foramen ovale is not demonstrated by agitated saline contrast. Aortic Valve: The aortic valve is trileaflet. The aortic valve leaflets are moderately thickened. There is no evidence of aortic regurgitation. There is no evidence of aortic stenosis. Mitral Valve: The mitral valve leaflets are mildly thickened. There is mild mitral regurgitation. There is no evidence of mitral stenosis. Tricuspid Valve: There is trace tricuspid regurgitation. No pulmonary hypertension is noted. Pulmonic Valve: There is no evidence of pulmonic regurgitation. Pericardium: There is no pericardial effusion. Aorta: There is no dilatation of the ascending aorta. There is no dilatation of the aortic root. Venous: The inferior vena cava appears normal in size. Contrast: Intravenous agitated saline contrast was used to assess intracardiac shunting. Measurements Chambers 2D Name Value Normal Range IVSd (2D) 1.58 cm (0.6 - 1.1) LVPWd (2D) 1.53 cm (0.6 - 1.1) LVIDd (2D) 4.27 cm (3.7 - 5.6) LVIDs (2D) 2.53 cm (2 - 3.8) LV FS (2D) 40.78 % - EF Teichholz (2D) 71.89 % - Ao root diameter (2D) 2.86 cm (2 - 3.7) Volumes/Mass Name Value Normal Range LA ESV SP 4CH (A/L) 25.43 ml - LA ESV SP 2CH (A/L) 29.74 ml - LA ESV BP (A/L) 27.53 ml - LA ESV BP (A/L) index 15.46 ml/m2 - LA ESV SP 4CH (MOD) 23.62 ml - LA ESV SP 2CH (MOD) 28.82 ml - LA ESV BP (MOD) 26 ml - LA ESV BP (MOD) index 14.61 ml/m2 - Diastolic/Systolic Function Name Value Normal Range MV E-wave Vmax 0.44 m/sec - MV deceleration time 223.73 msec - MV A-wave Vmax 0.85 m/sec - MV E:A ratio 0.51 ratio - Aortic Valve Name Value Normal Range AV Vmax 1.5 m/sec - AV VTI 23.91 cm - AV peak gradient 8.95 mmHg - AV mean gradient 5.42 mmHg - LVOT diameter 2.04 cm - LVOT Vmax 1.32 m/sec - LVOT VTI 21.85 cm - LVOT peak gradient 7 mmHg - LVOT mean gradient 3.8 mmHg - SV LVOT 71.45 ml - BECKY (continuity Vmax) 2.89 cm2 - BECKY (continuity VTI) 2.99 cm2 - Pulmonic Valve/Qp:Qs Name Value Normal Range PV Vmax 0.95 m/sec - PV peak gradient 3.58 mmHg - PV acceleration time 106.57 msec - Purcell/IV: Voiding Method Toilet IV Catheter Type [Left Hand] Peripheral IV Active Medications - Current Medications Current Medications: Generic Name Dose Route Start Last Admin Trade Name Freq PRN Reason Stop Dose Admin Acetaminophen 650 mg 08/07/20 04:34 Tylenol PO Q4H PRN Pain, Mild (1-3) Amlodipine Besylate 10 mg 08/09/20 10:00 Amlodipine PO QDAY [facility] Aspirin 325 mg 08/08/20 13:00 08/08/20 14:52 Aspirin PO 325 mg QDAY [facility] Administration Atorvastatin Calcium 40 mg 08/07/20 22:00 08/08/20 21:47 Lipitor PO 40 mg QHS [facility] Administration Bisacodyl 10 mg 08/07/20 04:34 Dulcolax AK QDAY PRN Constipation Carvedilol 6.25 mg 08/09/20 10:00 Coreg PO BID [facility] Hydralazine HCl 50 mg 08/09/20 08:30 Apresoline PO Q8HR [facility] Magnesium Hydroxide 30 ml 08/07/20 04:34 Milk Of Magnesia PO Q4H PRN Constipation Metoclopramide HCl 10 mg 08/07/20 04:34 Reglan PO Q6H PRN Nausea And Vomiting Ondansetron HCl 4 mg 08/07/20 04:34 Zofran IV Q8H PRN Nausea And Vomiting Promethazine HCl 25 mg 08/07/20 04:34 Phenergan AK Q6H PRN Nausea And Vomiting Sodium Chloride 10 ml 08/07/20 04:34 Sodium Chloride Flush Syringe 10 Ml IV PRN PRN LINE FLUSH Valsartan 160 mg 08/08/20 22:00 08/08/20 21:47 Diovan PO 160 mg BID [facility] Administration
[2020-08-09] MEDS ORDERED: LISINOPRIL 20 MG TAB PO SCH (10:00)
[2020-08-09] MEDS ORDERED: carvediloL 6.25 MG TAB PO SCH (10:00)
[2020-08-09] MEDS ORDERED: amLODIPine 10 MG TAB PO SCH (10:00)
[2020-08-09] MEDS: VALSARTAN 160MG TAB PO SCH (10:52)
[2020-08-09] MEDS: ASPIRIN 325 MG TAB PO SCH (10:52)
[2020-08-09] MEDS: hydrALAZINE 25 MG TAB PO SCH ×2 (10:52→14:57)
[2020-08-09] MEDS ORDERED: hydrALAZINE 25 MG TAB PO SCH (14:00)
--- NOTE | 2020-08-09 15:08 | Discharge Summary ---
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 Patient states that he has experienced difficulty speaking over the past 3 days with persistent symptoms over the same timeframe. Patient states that he had word finding difficulty while at work followed by an episode of inability to speak. Patient states that he left his job and went home for 3 hours and woke up with resolution of symptoms. Patient states that the symptoms recurred the following day. Patient transported to [facility] via private vehicle for further care and evaluation of the aforementioned symptoms. Patient seen and evaluated in the emergency department. All lab and imaging studies reviewed. Patient found to have neurologic deficit which is consistent with CVA. Patient also found to have hypertensive emergency with a blood pressure of 257/159. Patient admitted to [facility] and initiated on stroke protocol as well as Cardene drip for hypertensive emergency. Patient denies fever, chills, chest pain, palpitations, productive cough, recent ill contacts, blurry vision, vertigo, syncope, trauma, known exposure to COVID-19. No medication listed at time of admission. No prior admission for review. Advanced care planning conducted in ED. Patient's blood pressure subsequently improved while on nicardipine drip and patient was transferred to the floors. Brain imaging during this admission showed no acute stroke but patient has old infarct in the brain. Neurology was consulted and suggested aspirin daily. Blood pressure also needs to be better controlled. Patient was started on oral blood pressure medications and his blood pressure has improved. Patient will need to follow-up with his primary medical doctor for blood pressure management. He has been advised to continue to take medications as prescribed. He will continue low-salt diet and continue to monitor blood pressure at home. He agrees with plan and will be discharged home today in a stable condition. Disposition: DC-01 TO HOME OR SELFCARE Time spent for discharge: 40 minutes - Discharge Diagnoses (1) Hypertensive emergency Status: Acute (2) Hypertensive encephalopathy Status: Acute (3) TIA (transient ischemic attack) Status: Acute Core Measure Documentation - Palliative Care Palliative Care/ Comfort Measures: Not Applicable - Core Measures Any of the following diagnoses?: none Exam - Constitutional Vitals: Temp Pulse Resp BP Pulse Ox 97.9 F 81 18 170/108 95 08/09/20 14:54 08/09/20 14:54 08/09/20 14:54 08/09/20 14:54 08/09/20 14:54 General appearance: Present: no acute distress, well-nourished - EENT Eyes: Present: PERRL ENT: hearing intact, clear oral mucosa - Neck Neck: Present: supple, normal ROM - Respiratory Respiratory effort: normal Respiratory: bilateral: CTA - Cardiovascular Heart Sounds: Present: S1 & S2. Absent: rub, click - Extremities Extremities: pulses symmetrical, No edema Peripheral Pulses: within normal limits - Abdominal General gastrointestinal: Present: soft, non-tender, non-distended, normal bowel sounds Male genitourinary: Present: normal - Integumentary Integumentary: Present: clear, warm, dry - Musculoskeletal Musculoskeletal: gait normal, strength equal bilaterally - Psychiatric Psychiatric: appropriate mood/affect, intact judgment & insight - Neurologic Neurologic: CNII-XII intact, moves all extremities Plan Activity: no restrictions Diet: low fat, low cholesterol, low salt Additional Instructions: Continue blood pressure as prescribed. Monitor blood pressure at home with a blood pressure machine. Take low-salt diet. Follow-up with PCP in the office Follow up with: PRIMARY CARE, [Primary Care Provider] - 7 Days Prescriptions: AtorvaSTATin [Lipitor] 40 mg PO QHS #30 tablet amLODIPine 10 mg PO QDAY #30 tablet hydrALAZINE [Apresoline TAB] 50 mg PO Q8HR #90 tablet Aspirin 325 mg PO QDAY #30 tablet cloNIDine [Catapres] 0.1 mg PO PRN #30 tablet carvediloL [Coreg] 6.25 mg PO BID #60 tablet Valsartan [Diovan] 160 mg PO BID #60 tablet
[2020-08-09 15:57] VITALS: BP 153/96
== END 2020-08-09 16:59 | disposition home or self-care (01) | DRG 69 ==
LOC: ED 22:39 → IMCU 08-07 04:34 → CC1 08-07 10:41 → 4A 08-07 23:25
PROVIDERS: ADMIT Internal Medicine; ATTEND Internal Medicine
DX: G45.9 Transient cerebral ischemic attack, unspecified (principal); I16.1 Hypertensive emergency; I67.4 Hypertensive encephalopathy; I10 Essential (primary) hypertension; I25.10 Atherosclerotic heart disease of native coronary artery without angina pectoris; Z95.5 Presence of coronary angioplasty implant and graft; Z91.14 Patient's other noncompliance with medication regimen
CPT/HCPCS: 36415; 70450; 70551; 80048; 80061; 82962; 84484; 85025; 85610; 85670; 85730; 93005; 93306; 93880; G0378; A9270-GY; J0360; J7050

== ENCOUNTER 2020-08-13 08:59 | Inpatient (IN) | payer OTHER ==
--- NOTE | 2020-08-13 09:41 | Emergency Department Report ---
ED Neuro Deficit HPI - General Chief Complaint: High BP Stated Complaint: HIGH BLOOD PRESSURE Time Seen by Provider: 08/13/20 09:18 Source: patient, EMS ( EMS documentation not available at time of chart dictation ), RN notes reviewed, old records reviewed Mode of arrival: Ambulatory Limitations: Language Barrier - History of Present Illness Initial Comments: The patient was evaluated in the emergency department for symptoms described in the history of present illness. He/she was evaluated in the context of the global COVID-19 pandemic, which necessitated consideration that the patient might be at risk for infection with the virus that causes COVID-19. Institutional protocols and algorithms that pertain to the evaluation of patients at risk for COVID-19 are in a state of rapid change based on information released by regulatory bodies including the CDC and federal and state organizations. These policies and algorithms were followed during the patient's care in the emergency department. Please note that these policies, procedures and recommendations changed on a rapid basis. 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 He is not known to myself previously. He appears to have a history of hypertension, high cholesterol, currently on aspirin therapy, and distant history of stroke. He presents to the ER today with a complaint of high blood pressure, and a sensation of "the life has gone out of my right arm." He reports the blood pressure at home was 220s, 250s. He was recently admitted to this hospital for hypertensive urgency/emergency, and nonspecific/resolved speech disturbance, and was evaluated as per our stroke protocol. He had MRI of the brain which was negative for acute findings, but which did demonstrate evidence of old strokes. He also had a carotid duplex which was negative for significant disease. He states today that he felt that at, or around 8:00 AM, he noticed his right hand was clumsy, and he was not able to write correctly. He is not exactly sure what time this started. He thinks he woke up "feeling normally", but is not certain. He also describes the nursing nonspecific sensation of lightheadedness. He describes compliance with his medications. He denies physical pain at this time. He denies radiation of this time. He denies exacerbating or relieving factors at this time. No fever, no cough, no loss of taste or smell, and no urinary symptoms. -: hour(s) Location: right arm History of same: No Place: home Improves With: none Worsens With: none On Anticoagulants: Yes Context: other Associated Symptoms: denies other symptoms, other (As per history of present illness) - Related Data Home Medications: Previous Rx's Medication Instructions Recorded Last Taken Type Aspirin 325 mg PO QDAY #30 tablet 08/09/20 Unknown Rx AtorvaSTATin [Lipitor] 40 mg PO QHS #30 tablet 08/09/20 Unknown Rx Valsartan [Diovan] 160 mg PO BID #60 tablet 08/09/20 Unknown Rx amLODIPine 10 mg PO QDAY #30 tablet 08/09/20 Unknown Rx carvediloL [Coreg] 6.25 mg PO BID #60 tablet 08/09/20 Unknown Rx cloNIDine [Catapres] 0.1 mg PO PRN #30 tablet 08/09/20 Unknown Rx hydrALAZINE [Apresoline TAB] 50 mg PO Q8HR #90 tablet 08/09/20 Unknown Rx Allergies/Adverse Reactions: Allergies Allergy/AdvReac Type Severity Reaction Status Date / Time No Known Allergies Allergy Verified 08/07/20 07:57 ED Review of Systems ROS: Stated complaint: HIGH BLOOD PRESSURE Other details as noted in HPI Constitutional: see HPI Eyes: as per HPI ENT: as per HPI Respiratory: see HPI Cardiovascular: as per HPI Endocrine: see HPI Gastrointestinal: as per HPI Genitourinary: as per HPI Musculoskeletal: as per HPI Skin: as per HPI Neurological: as per HPI Psychiatric: as per HPI Hematological/Lymphatic: as per HPI ED Past Medical Hx - Past Medical History Previous Medical History?: Yes Hx Hypertension: Yes Hx Congestive Heart Failure: No Hx Diabetes: No Hx Asthma: No Hx COPD: No Additional medical history: Cardiac stent - Surgical History Past Surgical History?: Yes Hx Coronary Stent: Yes (1 stent (2018)) Additional Surgical History: Cardiac stent - Social History Smoking Status: Never Smoker - Medications Home Medications: Home Medications Medication Instructions Recorded Confirmed Last Taken Type Aspirin 325 mg PO QDAY #30 tablet 08/09/20 Unknown Rx AtorvaSTATin [Lipitor] 40 mg PO QHS #30 tablet 08/09/20 Unknown Rx Valsartan [Diovan] 160 mg PO BID #60 tablet 08/09/20 Unknown Rx amLODIPine 10 mg PO QDAY #30 tablet 08/09/20 Unknown Rx carvediloL [Coreg] 6.25 mg PO BID #60 tablet 08/09/20 Unknown Rx cloNIDine [Catapres] 0.1 mg PO PRN #30 tablet 08/09/20 Unknown Rx hydrALAZINE [Apresoline TAB] 50 mg PO Q8HR #90 tablet 08/09/20 Unknown Rx ED Neuro Physical Exam - General Limitations: No Limitations General appearance: alert, in no apparent distress Suspected Stroke: No - Head Head exam: Present: atraumatic, normocephalic - Eye Eye exam: Present: normal appearance, EOMI. Absent: nystagmus - ENT ENT exam: Present: normal exam, normal orophraynx, mucous membranes moist, normal external ear exam - Neck Neck exam: Present: normal inspection, full ROM. Absent: tenderness, meningismus - Respiratory Respiratory exam: Present: normal lung sounds bilaterally. Absent: respiratory distress, wheezes, rales, rhonchi, stridor, decreased breath sounds - Cardiovascular Cardiovascular Exam: Present: regular rate, normal rhythm, normal heart sounds. Absent: bradycardia, tachycardia, irregular rhythm, systolic murmur, diastolic murmur, rubs, gallop - GI/Abdominal GI/Abdominal exam: Present: soft, normal bowel sounds. Absent: distended, tenderness, guarding, rebound, rigid, pulsatile mass - Rectal Rectal exam: Present: deferred - Extremities Exam Extremities exam: Present: normal inspection, full ROM, other (2+ pulses noted in the bilateral upper and lower extremities. There is no palpable cord. negative Homans sign. Muscular compartments are soft. The pelvis is stable.). Absent: pedal edema, calf tenderness - Back Exam Back exam: Present: normal inspection, full ROM. Absent: tenderness, CVA tenderness (R), CVA tenderness (L), paraspinal tenderness, vertebral tenderness - Neurological Exam Neurological exam: Present: alert, oriented X3, other (No facial droop. Tongue midline. Extraocular movements intact bilaterally. Facial sensation intact to light touch in V1, V2, V3 distribution bilaterally. 5 and a 5 strength in 4 extremities. Sensation intact to light touch in 4 extremities.). Absent: motor sensory deficit - NIHSS Assessment Interval: Baseline 1a. Level of Consciousness: alert/keenly responsive 1b. LOC Questions: answers both correctly 1c. LOC Commands: performs tasks correctly 2. Best Gaze: normal 3. Visual: no visual loss 4. Facial Palsy: normal symmetrical movement 5b. Motor Arm Right: no drift 5a. Motor Arm Left: no drift 6a. Motor Leg Left: no drift 6b. Motor Leg Right: no drift 7. Limb Ataxia: absent 8. Sensory: normal 9. Best Language: no aphasia 10. Dysarthria: normal 11. Extinction/Inattention: no abnormality Total Score: 0 Stroke Severity: No Stroke Symptoms - Psychiatric Psychiatric exam: Present: normal affect, normal mood - Skin Skin exam: Present: warm, dry, intact, normal color. Absent: rash ED Course Vital Signs 08/13/20 08/13/20 09:13 09:35 Temperature 98.1 F Pulse Rate 92 H Respiratory 18 18 Rate Blood Pressure 155/100 Blood Pressure 150/100 [Right] O2 Sat by Pulse 100 100 Oximetry - Lab Data Result diagrams: 08/13/20 10:07 08/13/20 10:07 Lab Results 08/13/20 08/13/20 08/13/20 Range/Units 10:07 10:07 10:07 WBC 7.0 (4.5-11.0) K/mm3 RBC 5.97 H (3.65-5.03) M/mm3 Hgb 13.7 (11.8-15.2) gm/dl Hct 43.3 (35.5-45.6) % MCV 73 L (84-94) fl MCH 23 L (28-32) pg MCHC 32 (32-34) % RDW 13.5 (13.2-15.2) % Plt Count 216 (140-440) K/mm3 PT 14.7 (12.2-14.9) Sec. INR 1.13 (0.87-1.13) APTT 30.6 (24.2-36.6) Sec. Thrombin Time 16.3 (15.1-19.6) Sec. Sodium 140 (137-145) mmol/L Potassium 5.2 H (3.6-5.0) mmol/L Chloride 102.9 (98-107) mmol/L Carbon Dioxide 30 (22-30) mmol/L Anion Gap 12 mmol/L BUN 17 (9-20) mg/dL Creatinine 1.5 H (0.8-1.3) mg/dL Estimated GFR 58 ml/min BUN/Creatinine Ratio 11 % Glucose 148 H (75-100) mg/dL Calcium 10.0 (8.4-10.2) mg/dL Magnesium 2.00 (1.7-2.3) mg/dL Total Creatine Kinase 56 (55-170) units/L CK-MB (CK-2) 1.2 (0.0-4.0) ng/mL CK-MB (CK-2) Rel Index 2.1 (0-4) Troponin T < 0.010 (0.00-0.029) ng/mL - EKG Data -: EKG Interpreted by Sd EKG shows normal: sinus rhythm Rate: normal 08/13/20 10:58 Sinus rhythm, 84 bpm. Left axis deviation, left anterior fascicular block, left ventricular hypertrophy, poor R wave progression. Abnormal EKG. Not a STEMI. Pseudonormalized T waves V4, V5, nonspecific changes noted when compared to prior EKG. - Radiology Data Radiology results: report reviewed, image reviewed Print Report Referring Physician: OLGA ANAYA Patient Name: TALYA BROOKS Date of : 1960 Sex: Male Report Date: 2020-08-13 Report Status: Finalized Findings [facility] [address] [place] [address] Cat Scan Report Signed Patient: TALYA BROOKS MR#: [id number] 44 : 1960 Acct:[id number] Age/Sex: 59 / M ADM Date: 08/13/20 Loc: ED Attending Dr: Ordering Physician: OLGA ANAYA MD Date of Service: 08/13/20 Procedure(s): CT head/brain wo con Accession Number(s): [id number] cc: OLGA ANAYA MD NONENHANCED CT SCAN OF THE BRAIN: INDICATION: Code stroke TECHNIQUE: Routine CT head without contrast. Sagittal and coronal reformatted images were obtained. All CT scans at this location are performed using CT dose reduction for ALARA by means of automated exposure control. COMPARISON: MR scan of the brain 08/08/2020; CT scan of the head 08/07/2020 FINDINGS: BRAIN / INTRACRANIAL CONTENTS: Hemorrhage:No intracranial hemorrhage; no subarachnoid hemorrhage Stroke mimics: No subdural or epidural hematoma or space taking lesion Acute/subacute territorial infarction: Hoyt-white matter interface: No blurring; normal Insular cortex: Normal Basal ganglia: Normal Wedge shaped parenchymal low density area: Not present Cortical sulci: Not effaced Lacunar infarctions: No acute lacunar infarctions Vasculopathy: Dense middle cerebral artery sign: Not present Internal carotid artery terminus: Normal Basilar artery:Normal Middle cerebral artery branches in the sylvian fissure (Dot sign): Normal Calci fied embolus: Not present ASPECT score: 10 Chronic lesions: Chronic white matter lesions in both cerebral hemispheres more prominent in the left side due to chronic small vessel disease Craniocervical junction:No significant abnormality Orbits:No significant abnormality Paranasal sinuses/mastoids:No significant abnormality Additional findings: None IMPRESSION: No intracerebral hemorrhage No stroke mimics No CT findings to suggest acute territorial infarction This exam was performed as part of a code stroke protocol. The exam was completed at on 08/13/2020 9:03 AM. The exam was reviewed at 9:09 AM Central standard time and ER physician was notified at 9:11 AM Central standard time. Signer Name: Edelmira Curiel MD Signed: 08/13/2020 10:12 AM Workstation Name: [id number] Transcribed By: BS Dictated By: Edelmira Abreu MD Electronically Authenticated By: Edelmira Abreu MD Signed Date/Time: 08/13/20 1012 DD/ 1003 TD/TT: - Medical Decision Making Differential diagnosis, include but not limited to: Stroke, TIA, hypertension Assessment and plan: 59-year-old gentleman, with numerous cardiovascular comorbidities, known history of old stroke as demonstrated on MRI acquired recently, who presents to the ER with a complaint of resolved hypertension, and subjective sensation of right upper extremity clumsiness, and inability to write or use a pen as he normally does. Objectively speaking, he is a GCS of 15, with an NIH score of 0, his examination is not consistent with a large vessel occlusion at this time. I did personally witnessed the patient sign his name on a piece of paper work, and his prescription was legible and he did not appear to be having significant difficulty. However, the patient is insistent that his right upper extremity coordination feels "off." He was evaluated by stroke neurology, , Who also agrees that patient does not meet criteria for TPA, or emergent angiographic imaging. However, admission is recommended for urgent diagnostic work-up and evaluation. We will allow for permissive hypertension in the first 24 hours of symptoms, continue aspirin therapy, I discussed with her hospital physician to coordinate admission. Hospital team is paged, we are waiting for them to call back. Presumptive diagnosis at this time is TIA with hypertension - Core Measures Measure Exclusions: not indicated - Thrombolytic Inclusion/Exclusion Thrombolytic Contraindications: Rapidily Improving s/s Critical care attestation.: If time is entered above; I have spent that time in minutes in the direct care of this critically ill patient, excluding procedure time. ED Disposition Clinical Impression: TIA (transient ischemic attack), Hypertension Disposition: DC09 OP ADMIT IP TO THIS HOSP Is pt being admited?: Yes Does the pt Need Aspirin: Yes Condition: Fair Instructions: Hypertension (ED) Referrals: PRIMARY CARE, [Primary Care Provider] - 3-5 Days
--- NOTE | 2020-08-13 10:09 | Emergency Department Report ---
ED General Adult HPI - General Chief complaint: High BP Stated complaint: HIGH BLOOD PRESSURE Time Seen by Provider: 08/13/20 09:18 Source: EMS Mode of arrival: Ambulatory Limitations: No Limitations - History of Present Illness Severity scale (0 -10): 4 - Related Data Previous Rx's Medication Instructions Recorded Last Taken Type Aspirin 325 mg PO QDAY #30 tablet 08/09/20 Unknown Rx AtorvaSTATin [Lipitor] 40 mg PO QHS #30 tablet 08/09/20 Unknown Rx Valsartan [Diovan] 160 mg PO BID #60 tablet 08/09/20 Unknown Rx amLODIPine 10 mg PO QDAY #30 tablet 08/09/20 Unknown Rx carvediloL [Coreg] 6.25 mg PO BID #60 tablet 08/09/20 Unknown Rx cloNIDine [Catapres] 0.1 mg PO PRN #30 tablet 08/09/20 Unknown Rx hydrALAZINE [Apresoline TAB] 50 mg PO Q8HR #90 tablet 08/09/20 Unknown Rx Allergies Allergy/AdvReac Type Severity Reaction Status Date / Time No Known Allergies Allergy Verified 08/07/20 07:57 ED Review of Systems ROS: Stated complaint: HIGH BLOOD PRESSURE Other details as noted in HPI [facility] Date of Service: 08/13/2020 09:40:42 Impression: Rule Out Acute Ischemic Stroke Transient Ischemic Attack hypertensive urgency Comments/Sign-Out: The patient needs to be admitted for further testing with brain MRI, MRA, echocardiogram. He should be continued on antiplatelet and statin therapy if no contraindications. His blood pressure needs to be lowered gradually. About precipitous drop in blood pressure Metrics: Last Known Well: 08/13/2020 08:00:00 [facility] Notification Time: 08/13/2020 09:40:15 Arrival Time: 08/13/2020 08:59:00 Stamp Time: 08/13/2020 09:40:42 Time First Login Attempt: 08/13/2020 09:44:20 Video Start Time: 08/13/2020 09:44:20 Symptoms: right arm numbness NIHSS Start Assessment Time: 08/13/2020 09:55:47 Patient is not a candidate for Alteplase/Activase. Patient was not deemed candidate for Alteplase/Activase thrombolytics because of nonfocal exam. Video End Time: 08/13/2020 10:06:19 CT head showed no acute hemorrhage or acute core infarct. Clinical Presentation is not Suggestive of Large Vessel Occlusive Disease ED Physician notified of diagnostic impression and management plan on 08/13/2020 10:06:21 Our recommendations are outlined below. Recommendations: Activate Stroke Protocol Admission/Order Set Stroke/Telemetry Floor Neuro Checks Bedside Swallow Eval DVT Prophylaxis IV Fluids, Normal Saline Head of Bed 30 Degrees Euglycemia and Avoid Hyperthermia (PRN Acetaminophen) Antiplatelet Therapy Recommended Routine Consultation with Inhouse Neurology for Follow up Care Sign Out: Discussed with Emergency Department Provider History of Present Illness: Patient is a 60 year old Male. Patient was brought by private transportation with symptoms of right arm numbness 60 year old male with pmhsf HTN, HLD on 4 BP meds , with good compliance . He was LKN at 8 am when he developed right arm tingling and numbness with some weakness but without slurred speech or vision problems. Looks like his symptoms have resolved. His blood pressure was very high upon arrival but it has reduced to 150/100 now.His NIHSS is 0. cthead is negative for bleed, there are no signs of LVO. His BP needs to be lowered gradually. He needs to be admitted for furthe r work up. Last seen normal was within 4.5 hours. There is no history of hemorrhagic complications or intracranial hemorrhage. There is no history of Recent Anticoagulants. There is no history of recent major surgery. There is no history of recent stroke. Past Medical History: Hypertension Hyperlipidemia There is NO history of Diabetes Mellitus There is NO history of Atrial Fibrillation There is NO history of Stroke Antiplatelet use: asa Examination: BP(1150/100), Pulse(92), Blood Glucose(130) 1A: Level of Consciousness - Alert; keenly responsive + 0 1B: Ask Month and Age - Both Questions Right + 0 1C: Blink Eyes & Squeeze Hands - Performs Both Tasks + 0 2: Test Horizontal Extraocular Movements - Normal + 0 3: Test Visual Elias - No Visual Loss + 0 4: Test Facial Palsy (Use Grimace if Obtunded) - Normal symmetry + 0 5A: Test Left Arm Motor Drift - No Drift for 10 Seconds + 0 5B: Test Right Arm Motor Drift - No Drift for 10 Seconds + 0 6A: Test Left Leg Motor Drift - No Drift for 5 Seconds + 0 6B: Test Right Leg Motor Drift - No Drift for 5 Seconds + 0 7: Test Limb Ataxia (FNF/Heel-Jay) - No Ataxia + 0 8: Test Sensation - Normal; No sensory loss + 0 9: Test Language/Aphasia - Normal; No aphasia + 0 10: Test Dysarthria - Normal + 0 11: Test Extinction/Inattention - No abnormality + 0 NIHSS Score: 0 Patient/Family was informed the Neurology Consult would happen via TeleHealth consult by way of interactive audio and video telecommunications and consented to receiving care in this manner. Due to the immediate potential for life-threatening deterioration due to underlying acute neurologic illness, I spent 30 minutes providing critical care. This time includes time for face to face visit via telemedicine, review of medical records, imaging studies and discussion of findings with providers, the patient and/or family. Dr Sanchez Beck [facility] Case [id number] ED Past Medical Hx - Past Medical History Previous Medical History?: Yes Hx Hypertension: Yes Hx Congestive Heart Failure: No Hx Diabetes: No Hx Asthma: No Hx COPD: No Additional medical history: Cardiac stent - Surgical History Past Surgical History?: Yes Hx Coronary Stent: Yes (1 stent (2018)) Additional Surgical History: Cardiac stent - Social History Smoking Status: Never Smoker - Medications Home Medications: Home Medications Medication Instructions Recorded Confirmed Last Taken Type Aspirin 325 mg PO QDAY #30 tablet 08/09/20 Unknown Rx AtorvaSTATin [Lipitor] 40 mg PO QHS #30 tablet 08/09/20 Unknown Rx Valsartan [Diovan] 160 mg PO BID #60 tablet 08/09/20 Unknown Rx amLODIPine 10 mg PO QDAY #30 tablet 08/09/20 Unknown Rx carvediloL [Coreg] 6.25 mg PO BID #60 tablet 08/09/20 Unknown Rx cloNIDine [Catapres] 0.1 mg PO PRN #30 tablet 08/09/20 Unknown Rx hydrALAZINE [Apresoline TAB] 50 mg PO Q8HR #90 tablet 08/09/20 Unknown Rx ED Physical Exam - General Limitations: No Limitations ED Course Vital Signs 08/13/20 08/13/20 09:13 09:35 Temperature 98.1 F Pulse Rate 92 H Respiratory 18 18 Rate Blood Pressure 155/100 Blood Pressure 150/100 [Right] O2 Sat by Pulse 100 100 Oximetry Critical care attestation.: If time is entered above; I have spent that time in minutes in the direct care of this critically ill patient, excluding procedure time. ED Disposition Clinical Impression: TIA (transient ischemic attack) Disposition: OP ADMIT IP TO THIS HOSP Is pt being admited?: Yes Does the pt Need Aspirin: Yes Condition: Fair Referrals: PRIMARY CARE, [Primary Care Provider] - 3-5 Days
--- NOTE | 2020-08-13 10:16 | Cat Scan Report ---
NONENHANCED CT SCAN OF THE BRAIN: INDICATION: Code stroke TECHNIQUE: Routine CT head without contrast. Sagittal and coronal reformatted images were obtained. A ll CT scans at this location are performed using CT dose reduction for ALARA by means of automated ex posure control. COMPARISON: MR scan of the brain 08/08/2020; CT scan of the head 08/07/2020 FINDINGS: BRAIN / INTRACRANIAL CONTENTS: Hemorrhage:No intracranial hemorrhage; no subarachnoid hemorrhage Stroke mimics: No subdural or epidural hematoma or space taking lesion Acute/subacute territorial infarction: Hoyt-white matter interface: No blurring; normal Insular cortex: Normal Basal ganglia: Normal Wedge shaped parenchymal low density area: Not present Cortical sulci: Not effaced Lacunar infarctions: No acute lacunar infarctions Vasculopathy: Dense middle cerebral artery sign: Not present Internal carotid artery terminus: Normal Basilar artery:Normal Middle cerebral artery branches in the sylvian fissure (Dot sign): Normal Calcified embolus: Not present ASPECT score: 10 Chronic lesions: Chronic white matter lesions in both cerebral hemispheres more prominent in the left side due to chronic small vessel disease Craniocervical junction:No significant abnormality Orbits:No significant abnormality Paranasal sinuses/mastoids:No significant abnormality Additional findings: None IMPRESSION: No intracerebral hemorrhage No stroke mimics No CT findings to suggest acute territorial infarction This exam was performed as part of a code stroke protocol. The exam was completed at on 08/13/2020 9: 03 AM. The exam was reviewed at 9:09 AM Central standard time and ER physician was notified at 9:11 A M Central standard time. Signer Name: Edelmira Curiel MD Signed: 08/13/2020 10:12 AM Workstation Name: [id number]
[2020-08-13 10:19] LABS: Hematocrit 43.3 % (35.5-45.6); Hemoglobin 13.7 gm/dl (11.8-15.2); Mean Corpuscular HGB Conc 32 % (32-34); Mean Corpuscular Volume 73 fl (84-94); Platelet Count 216 K/mm3 (140-440); Red Blood Count 5.97 M/mm3 (3.65-5.03); Red Cell Distribution Width 13.5 % (13.2-15.2)
[2020-08-13 10:27] LABS: INR 1.13 (0.87-1.13)
[2020-08-13 10:28] LABS: Partial Thromboplastin Time 30.6 Sec. (24.2-36.6); Thrombin Time 16.3 Sec. (15.1-19.6)
[2020-08-13 10:33] LABS: Creatine Kinase MB 1.2 ng/mL (0.0-4.0)
[2020-08-13 10:35] LABS: BUN/Creatinine Ratio 11; Blood Urea Nitrogen 17 mg/dL (9-20); Hemolysis Index 5
[2020-08-13] MEDS ORDERED: ASPIRIN 81 MG TAB CHEW PO ONE (10:57)
[2020-08-13 11:05] LABS: Basophils % (Manual) 0 % (0.0-1.8); Platelet Estimate Consistent w Auto; RBC Morphology Normal; Total Cells Counted 100
--- NOTE | 2020-08-13 12:48 | History and Physical Report ---
History of Present Illness Date of examination: 08/13/20 Date of admission: 08/13/20 Chief complaint: Right-sided weakness, hypertensive urgency History of present illness: Patient is a 59-year-old male with past medical history of hypertension, CAD status post stent placement in the past. Recently seen in the hospital for aphasia that was ongoing for 3 days. At that time was noted to have hypertensive emergency with blood pressure 257/159 was treated with Cardene drip for hypertensive emergency subsequently discharged on blood pressure medications including clonidine as needed. He reports that he has been compliant with his medication although he tells me that his blood pressure at home this morning was 220, and 250 systolic over 102. He reports that yesterday was 120 systolic. He states that shortly after taking the blood pressure not feeling well he took his medications which he assures me that he takes every day including the clonidine although clonidine was ordered as needed. He reported feeling right hand clumsiness unable to write and feeling unwell. He denied any chest pain nausea vomiting or diarrhea. Recently he had had an MRI which was negative except for old stroke that was revealed. And a carotid Doppler which was also negative. While in the ER his symptoms has started improving. No other complaint reported. On my examination following administration of some blood pressure medication his blood pressure had come down to 140 systolic. - Discharge Diagnoses (1) Hypertensive emergency Status: Acute (2) Hypertensive encephalopathy Status: Acute (3) TIA (transient ischemic attack) Status: Acute General appearance: Present: no acute distress, well-nourished - EENT Eyes: Present: PERRL ENT: hearing intact, clear oral mucosa - Neck Neck: Present: supple, normal ROM - Respiratory Respiratory effort: normal Respiratory: bilateral: CTA - Cardiovascular Heart Sounds: Present: S1 & S2. Absent: rub, click - Extremities Extremities: pulses symmetrical, No edema Peripheral Pulses: within normal limits - Abdominal General gastrointestinal: Present: soft, non-tender, non-distended, normal bowel sounds Male genitourinary: Present: normal - Integumentary Integumentary: Present: clear, warm, dry - Musculoskeletal Musculoskeletal: gait normal, strength equal bilaterally - Psychiatric Psychiatric: appropriate mood/affect, intact judgment & insight - Neurologic Neurologic: CNII-XII intact, moves all extremities Plan Past History Past Medical History: hypertension, stroke, other Past Surgical History: PTCA Social history: no significant social history Family history: no significant family history Medications and Allergies Allergies Allergy/AdvReac Type Severity Reaction Status Date / Time No Known Allergies Allergy Verified 08/07/20 07:57 Home Medications Medication Instructions Recorded Confirmed Last Taken Type Aspirin 325 mg PO QDAY #30 tablet 08/09/20 08/13/20 08/13/20 16:09 Rx AtorvaSTATin [Lipitor] 40 mg PO QHS #30 tablet 08/09/20 08/13/20 08/12/20 Rx Valsartan [Diovan] 160 mg PO BID #60 tablet 08/09/20 08/13/20 08/12/20 Rx amLODIPine 10 mg PO QDAY #30 tablet 08/09/20 08/13/20 08/12/20 Rx carvediloL [Coreg] 6.25 mg PO BID #60 tablet 08/09/20 08/13/20 08/12/20 Rx cloNIDine [Catapres] 0.1 mg PO PRN #30 tablet 08/09/20 08/13/20 08/12/20 Rx hydrALAZINE [Apresoline TAB] 50 mg PO Q8HR #90 tablet 08/09/20 08/13/20 08/12/20 Rx Review of Systems All systems: negative Constitutional: no weight loss, no weight gain, no fever, no chills Cardiovascular: no chest pain, no palpitations, no rapid/irregular heart beat Respiratory: no cough with sputum, no hemoptysis, no dyspnea on exertion Gastrointestinal: no abdominal pain, no constipation, no change in bowel habits, no hematemesis Neurological: weakness (Right-sided), aphasia, change in speech Exam - Physical Exam Narrative exam: VITAL SIGNS: Reviewed. GENERAL: The patient appears normally developed otherwise appears in mild distress vital signs as documented. HEAD: No signs of head trauma. EYES: Pupils are equal. Extraocular motions intact. EARS: Hearing grossly intact. MOUTH: Oropharynx is normal. NECK: No adenopathy, no JVD. CHEST: Chest with clear breath sounds bilaterally. No wheezes, rales, or rhonchi. CARDIAC: Regular rate and rhythm. S1 and S2, without murmurs, gallops, or rubs. VASCULAR: No Edema. Peripheral pulses normal and equal in all extremities. ABDOMEN: Soft, non tender and non distended. No rebound or guarding, and no masses palpated. Bowel Sounds normal. MUSCULOSKELETAL: Good range of motion of all major joints. Extremities without clubbing, cyanosis or edema. NEUROLOGIC EXAM: Alert and oriented x 3 No focal sensory or strength deficits. Speech normal. Follows commands. PSYCHIATRIC: Mood normal. SKIN: detail exam as documented in skin assessment - Constitutional Vitals: Temp Pulse Resp BP Pulse Ox 98.1 F 92 H 18 150/100 100 08/13/20 09:13 08/13/20 09:13 08/13/20 09:35 08/13/20 09:13 08/13/20 09:35 HEART Score - HEART Score Troponin: Troponin T < 0.010 ng/mL (0.00-0.029) 08/13/20 10:07 Results - Labs CBC & Chem 7: 08/13/20 10:07 08/13/20 10:07 Labs: Laboratory Last Values WBC 7.0 K/mm3 (4.5-11.0) 08/13/20 10:07 RBC 5.97 M/mm3 (3.65-5.03) H 08/13/20 10:07 Hgb 13.7 gm/dl (11.8-15.2) 08/13/20 10:07 Hct 43.3 % (35.5-45.6) 08/13/20 10:07 MCV 73 fl (84-94) L 08/13/20 10:07 MCH 23 pg (28-32) L 08/13/20 10:07 MCHC 32 % (32-34) 08/13/20 10:07 RDW 13.5 % (13.2-15.2) 08/13/20 10:07 Plt Count 216 K/mm3 (140-440) 08/13/20 10:07 Add Manual Diff Complete 08/13/20 10:07 Total Counted 100 08/13/20 10:07 Seg Neuts % (Manual) 86.0 % (40.0-70.0) H 08/13/20 10:07 Band Neutrophils % 0 % 08/13/20 10:07 Lymphocytes % (Manual) 9.0 % (13.4-35.0) L 08/13/20 10:07 Reactive Lymphs % (Man) 0 % 08/13/20 10:07 Monocytes % (Manual) 4.0 % (0.0-7.3) 08/13/20 10:07 Eosinophils % (Manual) 1.0 % (0.0-4.3) 08/13/20 10:07 Basophils % (Manual) 0 % (0.0-1.8) 08/13/20 10:07 Metamyelocytes % 0 % 08/13/20 10:07 Myelocytes % 0 % 08/13/20 10:07 Promyelocytes % 0 % 08/13/20 10:07 Blast Cells % 0 % 08/13/20 10:07 Nucleated RBC % Not Reportable 08/13/20 10:07 Seg Neutrophils # Man 6.0 K/mm3 (1.8-7.7) 08/13/20 10:07 Band Neutrophils # 0.0 K/mm3 08/13/20 10:07 Lymphocytes # (Manual) 0.6 K/mm3 (1.2-5.4) L 08/13/20 10:07 Abs React Lymphs (Man) 0.0 K/mm3 08/13/20 10:07 Monocytes # (Manual) 0.3 K/mm3 (0.0-0.8) 08/13/20 10:07 Eosinophils # (Manual) 0.1 K/mm3 (0.0-0.4) 08/13/20 10:07 Basophils # (Manual) 0.0 K/mm3 (0.0-0.1) 08/13/20 10:07 Metamyelocytes # 0.0 K/mm3 08/13/20 10:07 Myelocytes # 0.0 K/mm3 08/13/20 10:07 Promyelocytes # 0.0 K/mm3 08/13/20 10:07 Blast Cells # 0.0 K/mm3 08/13/20 10:07 WBC Morphology Not Reportable 08/13/20 10:07 Hypersegmented Neuts Not Reportable 08/13/20 10:07 Hyposegmented Neuts Not Reportable 08/13/20 10:07 Hypogranular Neuts Not Reportable 08/13/20 10:07 Smudge Cells Not Reportable 08/13/20 10:07 Toxic Granulation Not Reportable 08/13/20 10:07 Toxic Vacuolation Not Reportable 08/13/20 10:07 Dohle Bodies Not Reportable 08/13/20 10:07 Pelger-Huet Anomaly Not Reportable 08/13/20 10:07 Quin Rods Not Reportable 08/13/20 10:07 Platelet Estimate Consistent w auto 08/13/20 10:07 Clumped Platelets Not Reportable 08/13/20 10:07 Plt Clumps, EDTA Not Reportable 08/13/20 10:07 Large Platelets Not Reportable 08/13/20 10:07 Giant Platelets Not Reportable 08/13/20 10:07 Platelet Satelliting Not Reportable 08/13/20 10:07 Plt Morphology Comment Not Reportable 08/13/20 10:07 RBC Morphology Normal 08/13/20 10:07 Dimorphic RBCs Not Reportable 08/13/20 10:07 Polychromasia Not Reportable 08/13/20 10:07 Hypochromasia Not Reportable 08/13/20 10:07 Poikilocytosis Not Reportable 08/13/20 10:07 Anisocytosis Not Reportable 08/13/20 10:07 Microcytosis Not Reportable 08/13/20 10:07 Macrocytosis Not Reportable 08/13/20 10:07 Spherocytes Not Reportable 08/13/20 10:07 Pappenheimer Bodies Not Reportable 08/13/20 10:07 Sickle Cells Not Reportable 08/13/20 10:07 Target Cells Not Reportable 08/13/20 10:07 Tear Drop Cells Not Reportable 08/13/20 10:07 Ovalocytes Not Reportable 08/13/20 10:07 Helmet Cells Not Reportable 08/13/20 10:07 [place] Bodies Not Reportable 08/13/20 10:07 [place] Rings Not Reportable 08/13/20 10:07 [place] Cells Not Reportable 08/13/20 10:07 Bite Cells Not Reportable 08/13/20 10:07 Crenated Cell Not Reportable 08/13/20 10:07 Elliptocytes Not Reportable 08/13/20 10:07 Acanthocytes (Spur) Not Reportable 08/13/20 10:07 Rouleaux Not Reportable 08/13/20 10:07 Hemoglobin C Crystals Not Reportable 08/13/20 10:07 Schistocytes Not Reportable 08/13/20 10:07 Malaria parasites Not Reportable 08/13/20 10:07 Kris Bodies Not Reportable 08/13/20 10:07 Hem Pathologist Commnt No 08/13/20 10:07 PT 14.7 Sec. (12.2-14.9) 08/13/20 10:07 INR 1.13 (0.87-1.13) 08/13/20 10:07 APTT 30.6 Sec. (24.2-36.6) 08/13/20 10:07 Thrombin Time 16.3 Sec. (15.1-19.6) 08/13/20 10:07 Sodium 140 mmol/L (137-145) 08/13/20 10:07 Potassium 5.2 mmol/L (3.6-5.0) H 08/13/20 10:07 Chloride 102.9 mmol/L (98-107) 08/13/20 10:07 Carbon Dioxide 30 mmol/L (22-30) 08/13/20 10:07 Anion Gap 12 mmol/L 08/13/20 10:07 BUN 17 mg/dL (9-20) 08/13/20 10:07 Creatinine 1.5 mg/dL (0.8-1.3) H 08/13/20 10:07 Estimated GFR 58 ml/min 08/13/20 10:07 BUN/Creatinine Ratio 11 % 08/13/20 10:07 Glucose 148 mg/dL (75-100) H 08/13/20 10:07 POC Glucose 121 mg/dL (70-105) H 08/13/20 11:14 Calcium 10.0 mg/dL (8.4-10.2) 08/13/20 10:07 Magnesium 2.00 mg/dL (1.7-2.3) 08/13/20 10:07 Total Creatine Kinase 56 units/L (55-170) 08/13/20 10:07 CK-MB (CK-2) 1.2 ng/mL (0.0-4.0) 08/13/20 10:07 CK-MB (CK-2) Rel Index 2.1 (0-4) 08/13/20 10:07 Troponin T < 0.010 ng/mL (0.00-0.029) 08/13/20 10:07 Purcell/IV: IV Catheter Type [Left Hand] Peripheral IV Assessment and Plan Assessment and plan: Patient is a 59-year-old male with past medical history of hypertension, CAD status post stent placement in the past. Recently seen in the hospital for aphasia that was ongoing for 3 days. At that time was noted to have hypertensive emergency with blood pressure 257/159 was treated with Cardene drip for hypertensive emergency subsequently discharged on blood pressure medications including clonidine as needed. He reports that he has been compliant with his medication although he tells me that his blood pressure at home this morning was 220, and 250 systolic over 102. He reports that yesterday was 120 systolic. He states that shortly after taking the blood pressure not feeling well he took his medications which he assures me that he takes every day including the clonidine although clonidine was ordered as needed. He reported feeling right hand clumsiness unable to write and feeling unwell. He denied any chest pain nausea vomiting or diarrhea. Recently he had had an MRI which was negative except for old stroke that was revealed. And a carotid Doppler which was also negative. While in the ER his symptoms has started improving. No other complaint reported. On my examination following administration of some blood pressure medication his blood pressure had come down to 140 systolic. 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 Advance Directives: Yes Plan of care discussed with patient/family: Yes
[2020-08-13] MEDS ORDERED: METOCLOPRAMIDE 10 MG TAB PO PRN (12:50)
[2020-08-13] MEDS ORDERED: MAGNESIUM HYDROXIDE (MOM) ORAL LIQD UDC PO PRN (12:50)
[2020-08-13] MEDS ORDERED: PROMETHAZINE 25 MG RECT SUPP PR PRN (12:50)
[2020-08-13] MEDS ORDERED: ACETAMINOPHEN 325 MG TAB PO PRN (12:50)
[2020-08-13] MEDS ORDERED: ONDANSETRON 4 MG/2 ML INJ IV PRN (12:50)
[2020-08-13] MEDS ORDERED: cloNIDine 0.1 MG TAB PO SCH (13:00)
[2020-08-13] MEDS ORDERED: hydrALAZINE 25 MG TAB PO SCH (14:00)
--- NOTE | 2020-08-13 15:02 | Consultation ---
History of Present Illness Consult date: 08/13/20 Reason for Consult: CVA Chief complaint: Right hand weakness, transiently. History of present illness: 59 yo male with htn, hld, ?stroke (on aspirin and plavix), who presents with noted changes with the sensation of the right hand this past Wednesday (08/09/2020) but then noted this morning with an elevated blood pressure. He notes that after he got to the hospital is when he noticed that is right hand was weaker (when he trying to sign paperwork) than his normal. Currently, he notes that his right hand is back to baseline. He denies any acute changes in his primary senses, headache, nausea, emesis, vertigo, or chest pain. Medications and Allergies Allergies Allergy/AdvReac Type Severity Reaction Status Date / Time No Known Allergies Allergy Verified 08/07/20 07:57 Home Medications Medication Instructions Recorded Confirmed Last Taken Type Aspirin 325 mg PO QDAY #30 tablet 08/09/20 08/13/20 08/13/20 16:09 Rx AtorvaSTATin [Lipitor] 40 mg PO QHS #30 tablet 08/09/20 08/13/20 08/12/20 Rx Valsartan [Diovan] 160 mg PO BID #60 tablet 08/09/20 08/13/20 08/12/20 Rx amLODIPine 10 mg PO QDAY #30 tablet 08/09/20 08/13/20 08/12/20 Rx carvediloL [Coreg] 6.25 mg PO BID #60 tablet 08/09/20 08/13/20 08/12/20 Rx cloNIDine [Catapres] 0.1 mg PO PRN #30 tablet 08/09/20 08/13/20 08/12/20 Rx hydrALAZINE [Apresoline TAB] 50 mg PO Q8HR #90 tablet 08/09/20 08/13/20 08/12/20 Rx Active Meds: Active Medications Acetaminophen (Tylenol) 650 mg PO Q4H PRN PRN Reason: Pain, Mild (1-3) Amlodipine Besylate (Amlodipine) 10 mg PO QDAY [facility] Aspirin (Aspirin) 325 mg PO QDAY [facility] Atorvastatin Calcium (Lipitor) 40 mg PO QHS NOEMI Bisacodyl (Dulcolax) 10 mg AR QDAY PRN PRN Reason: Constipation Carvedilol (Coreg) 6.25 mg PO BID NOEMI Clonidine HCl (Catapres) 0.1 mg PO PRN NOEMI Hydralazine HCl (Apresoline) 50 mg PO Q8HR [facility] Last Admin: 08/13/20 13:49 Dose: 50 mg Documented by: Magnesium Hydroxide (Milk Of Magnesia) 30 ml PO Q4H PRN PRN Reason: Constipation Metoclopramide HCl (Reglan) 10 mg PO Q6H PRN PRN Reason: Nausea And Vomiting Ondansetron HCl (Zofran) 4 mg IV Q8H PRN PRN Reason: Nausea And Vomiting Promethazine HCl (Phenergan) 25 mg AR Q6H PRN PRN Reason: Nausea And Vomiting Sodium Chloride (Sodium Chloride Flush Syringe 10 Ml) 10 ml IV PRN PRN PRN Reason: LINE FLUSH Valsartan (Diovan) 160 mg PO BID [facility] Review of Systems All systems: negative (except as per HPI;) Physical Examination - Vital Signs Vital Signs: Vital Signs Pulse Ox 99 08/13/20 09:10 - Additional Exam Additional Exam: Gen: nad, well-nourished; Head: normocephalic; Eyes: no gaze deviation; no ptosis; ENT: normal vocalization; CVS: warm and well-perfused; Pulm: no respiratory distress; GI: non-distended, protuberant; Ext: no cyanosis at distal extremities; Skin: no acute rash at distal extremities; Heme: no pathologic bruising or ecchymosis at distal extremities; Neuro: alert, oriented to name, age, month, year, surroundings, no dysarthria, no aphasia, CN 2 - PERRL, visual jett intact, CN 3, 4, 6 - EOMI, CN 5 - facial sensation decreased on left to light touch, CN 7 - facial movement symmetric, CN 8 - hearing grossly intact, CN 9, 10 - uvula midline, CN 11 - shrug symmetric, CN 12 - tongue midline; Motor - at least 5-/5 at left exts and at least 4+/5 at distal RUE and RLE; Sensory - light touch decreased at left arm and at right leg, Cerebellar - fnf /hts intact, Gait - deferred secondary to fall risk; NIHSS (1a.) Level of Consciousness:0 (1b.) LOC Questions:0 (1c.) LOC Commands:0 (2.) Best Gaze:0 (3.) Visual:0 (4.) Facial Palsy:0 (5a.) Motor Arm, Left:0 (5b.) Motor Arm, Right:0 (6a.) Motor Leg, Left:0 (6b.) Motor Leg, Right:0 (7.) Limb Ataxia:0 (8.) Sensory:1 (9.) Best Language:0 (10.) Dysarthria:0 (11.) Extinction and Inattention:0 NIHSS Total Score: 1 Results - Laboratory Findings CBC and BMP: 08/13/20 10:07 08/13/20 10:07 Abnormal Lab Findings: Abnormal Labs 08/13/20 08/13/20 08/13/20 10:07 10:07 11:14 RBC 5.97 H MCV 73 L MCH 23 L Seg Neuts % (Manual) 86.0 H Lymphocytes % (Manual) 9.0 L Lymphocytes # (Manual) 0.6 L Potassium 5.2 H Creatinine 1.5 H Glucose 148 H POC Glucose 121 H Assessment and Plan 59 yo male with htn, hld, ?stroke (on aspirin and plavix), who presents with noted changes with the sensation of the right hand this past Wednesday (08/09/2020) but then noted this morning with an elevated blood pressure wit ntoed weakness of the right extremities. 1. Acute Ischemic Stroke: ASA 325 mg PO qday, Plavix 75 mg PO qday, MRI Brain w/o contrast, MRA Head w/o contrast, TTEcho, CUS, check LDL/HgbA1C/TSH, baseline CXR, EKG; telemetry, SBP goal 160-200 mmHg and DBP 80-100 mmHg for now. Statin therapy for a goal LDL of 70, when patient passes swallow evaluation. PT/OT/ST/Swallow evaluation. Long-term risk-factor modification, including a strict diet/exercise regimen for secondary stroke prophylaxis. 2. Hypertension - goal SBP 160-200 mmHg and DBP 80-200 mmHg until MRA/CUS results are available. 3. Hyperlipidemia - goal LDL of 70 w/ statin therapy if no contraindications. 4. Right-sided weakness - pt/ot evaluation/monitoring. Kory Mercado MD Neurology
[2020-08-13] MEDS: VALSARTAN 160MG TAB PO SCH (21:56)
[2020-08-13] MEDS: METOPROLOL TARTRATE 50 MG TAB PO SCH (21:56)
[2020-08-13] MEDS ORDERED: carvediloL 6.25 MG TAB PO SCH (22:00)
[2020-08-13] MEDS: hydrALAZINE 100 MG TAB PO SCH (22:01)
[2020-08-14] MEDS: hydrALAZINE 100 MG TAB PO SCH ×3 (05:22→21:17)
[2020-08-14 07:00] LABS: Chol/HDL Ratio 4.55 %
--- NOTE | 2020-08-14 09:50 | Magnetic Resonance Report ---
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 TECHNIQUE: Multiplanar, multisequence MR images of the brain were obtained. COMPARISON: The study is compared to the previous MRI of 08/07/2020. FINDINGS: BRAIN / INTRACRANIAL CONTENTS: There has been interval development of a 6 to 7 mm acute infarct invol ving the superior left mary from the earlier MRI. Otherwise, there is continued extensive white matte r disease most consistent with microvascular angiopathy. There is an older infarct involving the left fish radiata. The diffusion imaging reveals no evidence of supratentorial acute infarct. There is mild cerebral atrophy. The ventricular system is unchanged in size and configuration. No ext ra-axial fluid collections or significant mass effect is identified. CRANIOCERVICAL JUNCTION: No significant abnormality. VASCULAR FLOW-VOIDS: No significant abnormality. ORBITS: No significant abnormality of visualized orbits. SINUSES / MASTOIDS: There is mild mucosal thickening within the ethmoid air cells. ADDITIONAL FINDINGS: None. IMPRESSION: 1. There has been interval development of a 6 to 7 mm acute infarct involving the superior left mary from 08/08/2020. 2. There is otherwise continued extensive chronic microvascular angiopathy as described. Signer Name: Paresh Mcdaniel MD Signed: 08/14/2020 9:45 AM Workstation Name: [id number]
[2020-08-14] MEDS ORDERED: ASPIRIN 325 MG TAB PO SCH (10:00)
[2020-08-14] MEDS ORDERED: ASPIRIN 81 MG TAB CHEW PO SCH (10:00)
--- NOTE | 2020-08-14 10:14 | Magnetic Resonance Report ---
MRA HEAD WITHOUT CONTRAST HISTORY: Right-sided weakness. Cerebrovascular accident. Hypertensive patient. Recent MRI brain demon strates acute left-sided pontine infarction. COMPARISON: none TECHNIQUE: Routine MRA of the head performed. 3-D/MIP reformats postprocessed. CONTRAST: none FINDINGS: MRA HEAD: OVERVIEW: There is no evidence of intracranial stenosis or large vessel occlusion. There is no eviden ce of aneurysm or other vascular malformation. Intracranial vertebral arteries: Normal and symmetrical vertebral arteries both contribute to the bas ilar artery origin. Basilar artery: Basilar artery has an unremarkable appearance. Posterior cerebral arteries: Normal and symmetrical appearing posterior cerebral arteries are identif ied. Intracranial internal carotid arteries: No significant abnormality. Anterior cerebral arteries: Bilaterally symmetrical A1 segments of the anterior cerebral arteries are demonstrated. No abnormalities are seen along the course of the A2 segments or visualized pericallos al branches. Middle cerebral arteries: Normal and symmetrical M1 segments are demonstrated bilaterally. No abnorma lities are seen on evaluation of the insular or opercular branches of the middle cerebral arteries. Additional findings: None. IMPRESSION: 1. No significant abnormalities are identified on MRA head. Signer Name: Drew Booth MD Signed: 08/14/2020 10:09 AM Workstation Name: [id number]
[2020-08-14] MEDS: CLOPIDOGREL 75 MG TAB PO SCH (10:55)
[2020-08-14] MEDS: VALSARTAN 160MG TAB PO SCH ×2 (10:55→21:16)
[2020-08-14] MEDS: amLODIPine 10 MG TAB PO SCH (10:55)
[2020-08-14] MEDS: METOPROLOL TARTRATE 50 MG TAB PO SCH ×2 (10:55→21:17)
[2020-08-14] MEDS: ASPIRIN 325 MG TAB PO SCH (10:55)
--- NOTE | 2020-08-14 15:09 | Progress Note ---
Assessment and Plan Assessment and plan: Patient is a 59-year-old male with past medical history of hypertension, CAD status post stent placement in the past. Recently seen in the hospital for aphasia that was ongoing for 3 days. At that time was noted to have hypertensive emergency with blood pressure 257/159 was treated with Cardene drip for hypertensive emergency subsequently discharged on blood pressure medications including clonidine as needed. He reports that he has been compliant with his medication although he tells me that his blood pressure at home this morning was 220, and 250 systolic over 102. He reports that yesterday was 120 systolic. He states that shortly after taking the blood pressure not feeling well he took his medications which he assures me that he takes every day including the clonidine although clonidine was ordered as needed. He reported feeling right hand clumsiness unable to write and feeling unwell. He denied any chest pain nausea vomiting or diarrhea. Recently he had had an MRI which was negative except for old stroke that was revealed. And a carotid Doppler which was also negative. While in the ER his symptoms has started improving. No other complaint reported. On my examination following administration of some blood pressure medication his blood pressure had come down to 140 systolic. MRI- Head IMPRESSION: 1. There has been interval development of a 6 to 7 mm acute infarct involving the superior left mary from 08/08/2020. 2. There is otherwise continued extensive chronic microvascular angiopathy as described. MRA HEAD IMPRESSION: 1. No significant abnormalities are identified on MRA head. Hypertensive emergency Hypertensive encephalopathy with residual right-sided paresis Right-sided hemiparesis DIYA with vasomotor nephropathy CVA- Superior left mary. Advised patient of finding Question of compliance with medications CAD Plan 08/14: Continue statin and ASA and also Plavix. BP is somewhat improved, continue to monitor. Repeat renal studies. Resume home medications Stroke protocol with aspirin and statin We will adjust blood pressure medication for better control I do not think clonidine is an ideal medication for this patient Will change from Coreg to metoprolol 50 twice daily We will up increase hydralazine 200 mg every 8 Continue clonidine as needed We will provide blood pressure education Neurology evaluation Counseling provided to the patient CT of the head reviewed no acute pathology noted Anticipate discharge in a.m. Hospitalist Physical - Constitutional Vitals: Temp Pulse Resp BP Pulse Ox 97.7 F 91 H 24 159/89 92 08/14/20 11:44 08/14/20 11:44 08/14/20 11:44 08/14/20 11:44 08/14/20 11:44 HEART Score - HEART Score Troponin: Troponin T < 0.010 ng/mL (0.00-0.029) 08/13/20 10:07 Results - Labs CBC & Chem 7: 08/13/20 10:07 08/13/20 10:07 Labs: Laboratory Last Values WBC 7.0 K/mm3 (4.5-11.0) 08/13/20 10:07 RBC 5.97 M/mm3 (3.65-5.03) H 08/13/20 10:07 Hgb 13.7 gm/dl (11.8-15.2) 08/13/20 10:07 Hct 43.3 % (35.5-45.6) 08/13/20 10:07 MCV 73 fl (84-94) L 08/13/20 10:07 MCH 23 pg (28-32) L 08/13/20 10:07 MCHC 32 % (32-34) 08/13/20 10:07 RDW 13.5 % (13.2-15.2) 08/13/20 10:07 Plt Count 216 K/mm3 (140-440) 08/13/20 10:07 Add Manual Diff Complete 08/13/20 10:07 Total Counted 100 08/13/20 10:07 Seg Neuts % (Manual) 86.0 % (40.0-70.0) H 08/13/20 10:07 Band Neutrophils % 0 % 08/13/20 10:07 Lymphocytes % (Manual) 9.0 % (13.4-35.0) L 08/13/20 10:07 Reactive Lymphs % (Man) 0 % 08/13/20 10:07 Monocytes % (Manual) 4.0 % (0.0-7.3) 08/13/20 10:07 Eosinophils % (Manual) 1.0 % (0.0-4.3) 08/13/20 10:07 Basophils % (Manual) 0 % (0.0-1.8) 08/13/20 10:07 Metamyelocytes % 0 % 08/13/20 10:07 Myelocytes % 0 % 08/13/20 10:07 Promyelocytes % 0 % 08/13/20 10:07 Blast Cells % 0 % 08/13/20 10:07 Nucleated RBC % Not Reportable 08/13/20 10:07 Seg Neutrophils # Man 6.0 K/mm3 (1.8-7.7) 08/13/20 10:07 Band Neutrophils # 0.0 K/mm3 08/13/20 10:07 Lymphocytes # (Manual) 0.6 K/mm3 (1.2-5.4) L 08/13/20 10:07 Abs React Lymphs (Man) 0.0 K/mm3 08/13/20 10:07 Monocytes # (Manual) 0.3 K/mm3 (0.0-0.8) 08/13/20 10:07 Eosinophils # (Manual) 0.1 K/mm3 (0.0-0.4) 08/13/20 10:07 Basophils # (Manual) 0.0 K/mm3 (0.0-0.1) 08/13/20 10:07 Metamyelocytes # 0.0 K/mm3 08/13/20 10:07 Myelocytes # 0.0 K/mm3 08/13/20 10:07 Promyelocytes # 0.0 K/mm3 08/13/20 10:07 Blast Cells # 0.0 K/mm3 08/13/20 10:07 WBC Morphology Not Reportable 08/13/20 10:07 Hypersegmented Neuts Not Reportable 08/13/20 10:07 Hyposegmented Neuts Not Reportable 08/13/20 10:07 Hypogranular Neuts Not Reportable 08/13/20 10:07 Smudge Cells Not Reportable 08/13/20 10:07 Toxic Granulation Not Reportable 08/13/20 10:07 Toxic Vacuolation Not Reportable 08/13/20 10:07 Dohle Bodies Not Reportable 08/13/20 10:07 Pelger-Huet Anomaly Not Reportable 08/13/20 10:07 Quin Rods Not Reportable 08/13/20 10:07 Platelet Estimate Consistent w auto 08/13/20 10:07 Clumped Platelets Not Reportable 08/13/20 10:07 Plt Clumps, EDTA Not Reportable 08/13/20 10:07 Large Platelets Not Reportable 08/13/20 10:07 Giant Platelets Not Reportable 08/13/20 10:07 Platelet Satelliting Not Reportable 08/13/20 10:07 Plt Morphology Comment Not Reportable 08/13/20 10:07 RBC Morphology Normal 08/13/20 10:07 Dimorphic RBCs Not Reportable 08/13/20 10:07 Polychromasia Not Reportable 08/13/20 10:07 Hypochromasia Not Reportable 08/13/20 10:07 Poikilocytosis Not Reportable 08/13/20 10:07 Anisocytosis Not Reportable 08/13/20 10:07 Microcytosis Not Reportable 08/13/20 10:07 Macrocytosis Not Reportable 08/13/20 10:07 Spherocytes Not Reportable 08/13/20 10:07 Pappenheimer Bodies Not Reportable 08/13/20 10:07 Sickle Cells Not Reportable 08/13/20 10:07 Target Cells Not Reportable 08/13/20 10:07 Tear Drop Cells Not Reportable 08/13/20 10:07 Ovalocytes Not Reportable 08/13/20 10:07 Helmet Cells Not Reportable 08/13/20 10:07 [place] Bodies Not Reportable 08/13/20 10:07 [place] Rings Not Reportable 08/13/20 10:07 Nory Cells Not Reportable 08/13/20 10:07 Bite Cells Not Reportable 08/13/20 10:07 Crenated Cell Not Reportable 08/13/20 10:07 Elliptocytes Not Reportable 08/13/20 10:07 Acanthocytes (Spur) Not Reportable 08/13/20 10:07 Rouleaux Not Reportable 08/13/20 10:07 Hemoglobin C Crystals Not Reportable 08/13/20 10:07 Schistocytes Not Reportable 08/13/20 10:07 Malaria parasites Not Reportable 08/13/20 10:07 Kris Bodies Not Reportable 08/13/20 10:07 Hem Pathologist Commnt No 08/13/20 10:07 PT 14.7 Sec. (12.2-14.9) 08/13/20 10:07 INR 1.13 (0.87-1.13) 08/13/20 10:07 APTT 30.6 Sec. (24.2-36.6) 08/13/20 10:07 Thrombin Time 16.3 Sec. (15.1-19.6) 08/13/20 10:07 Sodium 140 mmol/L (137-145) 08/13/20 10:07 Potassium 5.2 mmol/L (3.6-5.0) H 08/13/20 10:07 Chloride 102.9 mmol/L (98-107) 08/13/20 10:07 Carbon Dioxide 30 mmol/L (22-30) 08/13/20 10:07 Anion Gap 12 mmol/L 08/13/20 10:07 BUN 17 mg/dL (9-20) 08/13/20 10:07 Creatinine 1.5 mg/dL (0.8-1.3) H 08/13/20 10:07 Estimated GFR 58 ml/min 08/13/20 10:07 BUN/Creatinine Ratio 11 % 08/13/20 10:07 Glucose 148 mg/dL (75-100) H 08/13/20 10:07 POC Glucose 121 mg/dL (70-105) H 08/13/20 11:14 Hemoglobin A1c 6.3 % (4-6) H 08/14/20 04:33 Calcium 10.0 mg/dL (8.4-10.2) 08/13/20 10:07 Magnesium 2.00 mg/dL (1.7-2.3) 08/13/20 10:07 Total Creatine Kinase 56 units/L (55-170) 08/13/20 10:07 CK-MB (CK-2) 1.2 ng/mL (0.0-4.0) 08/13/20 10:07 CK-MB (CK-2) Rel Index 2.1 (0-4) 08/13/20 10:07 Troponin T < 0.010 ng/mL (0.00-0.029) 08/13/20 10:07 Triglycerides 122 mg/dL (2-149) 08/14/20 04:33 Cholesterol 132 mg/dL (50-199) 08/14/20 04:33 LDL Cholesterol Direct 88 mg/dL (50-130) 08/14/20 04:33 HDL Cholesterol 29 mg/dL (40-59) L 08/14/20 04:33 Cholesterol/HDL Ratio 4.55 % 08/14/20 04:33 Purcell/IV: Voiding Method Urinal IV Catheter Type [Left Hand] Peripheral IV Active Medications - Current Medications Current Medications: Generic Name Dose Route Start Last Admin Trade Name Freq PRN Reason Stop Dose Admin Acetaminophen 650 mg 08/13/20 12:50 Tylenol PO Q4H PRN Pain, Mild (1-3) Amlodipine Besylate 10 mg 08/14/20 10:00 08/14/20 10:55 Amlodipine PO 10 mg QDAY NOEMI Administration Aspirin 325 mg 08/14/20 10:00 08/14/20 10:55 Aspirin PO 325 mg QDAY NOEMI Administration Atorvastatin Calcium 40 mg 08/13/20 22:00 08/13/20 21:56 Lipitor PO 40 mg QHS NOEMI Administration Bisacodyl 10 mg 08/13/20 12:50 Dulcolax MO QDAY PRN Constipation Clonidine HCl 0.1 mg 08/13/20 13:00 Catapres PO PRN NOEMI Clopidogrel Bisulfate 75 mg 08/14/20 10:00 08/14/20 10:55 Plavix PO 75 mg QDAY NOEMI Administration Hydralazine HCl 100 mg 08/13/20 16:44 08/14/20 05:22 Apresoline PO 100 mg Q8HR NOEMI Administration Magnesium Hydroxide 30 ml 08/13/20 12:50 Milk Of Magnesia PO Q4H PRN Constipation Metoclopramide HCl 10 mg 08/13/20 12:50 Reglan PO Q6H PRN Nausea And Vomiting Metoprolol Tartrate 50 mg 08/13/20 22:00 08/14/20 10:55 Metoprolol PO 50 mg BID NOEMI Administration Ondansetron HCl 4 mg 08/13/20 12:50 Zofran IV Q8H PRN Nausea And Vomiting Promethazine HCl 25 mg 08/13/20 12:50 Phenergan MO Q6H PRN Nausea And Vomiting Sodium Chloride 10 ml 08/13/20 12:50 Sodium Chloride Flush Syringe 10 Ml IV PRN PRN LINE FLUSH Valsartan 160 mg 08/13/20 22:00 08/14/20 10:55 Diovan PO 160 mg BID NOEMI Administration Nutrition/Malnutrition Assess - Dietary Evaluation Nutrition/Malnutrition Findings: Nutrition Notes Start: 08/14/20 11:22 Freq: Status: Active Protocol: Document 08/14/20 11:22 EN (Rec: 08/14/20 11:36 EN [email or web address]) Co-Sign 08/14/20 11:22 LM Nutrition Notes Need for Assessment generated from: MD Order,Education Initial or Follow up Assessment Current Diagnosis Hypertension,Stroke Other Pertinent Diagnosis TIA Current Diet Mechanical Soft Labs/Tests 08/13: K+ 5.2, Cr 1.5, Glu 148 08/14: A1c 6.3, HDL 29 Pertinent Medications Reviewed Height 5 ft 6 in Weight 88.1 kg [place] Body Weight (kg) 64.54 BMI 31.3 Intake Prior to Admission Good Weight Status Obese Subjective/Other Information RD consulted for CVA diet education. RD provided education on heart healthy diet (CVA) and carbohydrates ( pre-diabetes AEB A1c). Pt verbalized understanding. Pt reports eating well [employer] and denies N/V/D and abd pain. Pt reports good appetite and eating well without difficulty . RD noticed full breakfast untouched on table at bedside. Pt awaiting swallow screen by WAGE ADJUSTER prior to diet advancement . Burn Absent Trauma Absent GI Symptoms None Food Allergy No Current % PO Fair (50-74%) Minimum of two criteria No physical signs of malnutrition #2 Nutrition Diagnosis Inadequate oral intake Etiology CVA and TIA diagnosis As Evidenced by Signs and Symptoms awaiting WAGE ADJUSTER consult and untouched breakfast at bedside #1 Nutrition Diagnosis Food and nutrition-related knowledge deficit Etiology no prior education on heart healthy diet and consistent CHO As Evidenced by Signs and Symptoms pt verbalizing questions and need for education, A1C 6.3 Is patient on ventilator? No Is Patient Ambulatory and/or Out of Bed Yes REE-([facility]-ambulatory/OOB) [ 2123.875 [id number]] Kcal/Kg value to use for calculation 20 Approximate Energy Requirements Using 1762 kcal/Kg Calculation Used for Recommendations Kcal/kg Additional Notes Protein: 0.8-1.0 g/kg AdBW 76. 32kg (61-76g) Fluid: 1 ml/kcal Nutrition Intervention Change Diet Order: Continue diet order, advance texture as recommended by WAGE ADJUSTER Teaching Recipient Patient Learning Readiness Good Teaching Methods Discussion,Handout Response to Teaching Verbalize understanding Education Handouts Provided CVA Heart Healthy and Diabetes /Plate method Barriers to Learning No Barriers RD phone number provided Yes Patient aware of follow up options Yes Goal #1 Meet 75% of energy and protein needs Anticipated Discharge Needs: unable to determine at this time Follow-Up By: 08/16/20 Additional Comments F/u for intakes and diet texture advancement
--- NOTE | 2020-08-14 15:11 | Progress Note ---
Assessment and Plan Assessment and plan: Patient is a 59-year-old male with past medical history of hypertension, CAD status post stent placement in the past. Recently seen in the hospital for aphasia that was ongoing for 3 days. At that time was noted to have hypertensive emergency with blood pressure 257/159 was treated with Cardene drip for hypertensive emergency subsequently discharged on blood pressure medications including clonidine as needed. He reports that he has been compliant with his medication although he tells me that his blood pressure at home this morning was 220, and 250 systolic over 102. He reports that yesterday was 120 systolic. He states that shortly after taking the blood pressure not feeling well he took his medications which he assures me that he takes every day including the clonidine although clonidine was ordered as needed. He reported feeling right hand clumsiness unable to write and feeling unwell. He denied any chest pain nausea vomiting or diarrhea. Recently he had had an MRI which was negative except for old stroke that was revealed. And a carotid Doppler which was also negative. While in the ER his symptoms has started improving. No other complaint reported. On my examination following administration of some blood pressure medication his blood pressure had come down to 140 systolic. MRI- Head IMPRESSION: 1. There has been interval development of a 6 to 7 mm acute infarct involving the superior left mary from 08/08/2020. 2. There is otherwise continued extensive chronic microvascular angiopathy as described. MRA HEAD IMPRESSION: 1. No significant abnormalities are identified on MRA head. Hypertensive emergency Hypertensive encephalopathy with residual right-sided paresis Right-sided hemiparesis DIYA with vasomotor nephropathy Hyperkalemia CVA- Superior left mary. Advised patient of finding Question of compliance with medications CAD Plan 08/14: Continue Statin and ASA and also Plavix. BP is somewhat improved, continue to monitor. Repeat renal studies. Resume home medications Stroke protocol with aspirin and statin We will adjust blood pressure medication for better control I do not think clonidine is an ideal medication for this patient Will change from Coreg to metoprolol 50 twice daily We will up increase hydralazine 200 mg every 8 Continue clonidine as needed We will provide blood pressure education Neurology evaluation Counseling provided to the patient CT of the head reviewed no acute pathology noted Anticipate discharge in a.m. History Interval history: Patient seen and examined resting comfortable, no new complaints Hospitalist Physical - Physical exam Narrative exam: VITAL SIGNS: Reviewed. GENERAL: The patient appears normally developed otherwise, no distress vital signs as documented. HEAD: No signs of head trauma. EYES: Pupils are equal. Extraocular motions intact. EARS: Hearing grossly intact. MOUTH: Oropharynx is normal. NECK: No adenopathy, no JVD. CHEST: Chest with clear breath sounds bilaterally. No wheezes, rales, or rhonchi. CARDIAC: Regular rate and rhythm. S1 and S2, without murmurs, gallops, or rubs. VASCULAR: No Edema. Peripheral pulses normal and equal in all extremities. ABDOMEN: Soft, non tender and non distended. No rebound or guarding, and no masses palpated. Bowel Sounds normal. MUSCULOSKELETAL: Good range of motion of all major joints. Extremities without clubbing, cyanosis or edema. NEUROLOGIC EXAM: Alert and oriented x 3 No focal sensory or strength deficits. Speech normal. Follows commands. PSYCHIATRIC: Mood normal. SKIN: detail exam as documented in skin assessment - Constitutional Vitals: Temp Pulse Resp BP Pulse Ox 97.7 F 91 H 24 159/89 92 08/14/20 11:44 08/14/20 11:44 08/14/20 11:44 08/14/20 11:44 08/14/20 11:44 HEART Score - HEART Score Troponin: Troponin T < 0.010 ng/mL (0.00-0.029) 08/13/20 10:07 Results - Labs CBC & Chem 7: 08/13/20 10:07 08/13/20 10:07 Labs: Laboratory Last Values WBC 7.0 K/mm3 (4.5-11.0) 08/13/20 10:07 RBC 5.97 M/mm3 (3.65-5.03) H 08/13/20 10:07 Hgb 13.7 gm/dl (11.8-15.2) 08/13/20 10:07 Hct 43.3 % (35.5-45.6) 08/13/20 10:07 MCV 73 fl (84-94) L 08/13/20 10:07 MCH 23 pg (28-32) L 08/13/20 10:07 MCHC 32 % (32-34) 08/13/20 10:07 RDW 13.5 % (13.2-15.2) 08/13/20 10:07 Plt Count 216 K/mm3 (140-440) 08/13/20 10:07 Add Manual Diff Complete 08/13/20 10:07 Total Counted 100 08/13/20 10:07 Seg Neuts % (Manual) 86.0 % (40.0-70.0) H 08/13/20 10:07 Band Neutrophils % 0 % 08/13/20 10:07 Lymphocytes % (Manual) 9.0 % (13.4-35.0) L 08/13/20 10:07 Reactive Lymphs % (Man) 0 % 08/13/20 10:07 Monocytes % (Manual) 4.0 % (0.0-7.3) 08/13/20 10:07 Eosinophils % (Manual) 1.0 % (0.0-4.3) 08/13/20 10:07 Basophils % (Manual) 0 % (0.0-1.8) 08/13/20 10:07 Metamyelocytes % 0 % 08/13/20 10:07 Myelocytes % 0 % 08/13/20 10:07 Promyelocytes % 0 % 08/13/20 10:07 Blast Cells % 0 % 08/13/20 10:07 Nucleated RBC % Not Reportable 08/13/20 10:07 Seg Neutrophils # Man 6.0 K/mm3 (1.8-7.7) 08/13/20 10:07 Band Neutrophils # 0.0 K/mm3 08/13/20 10:07 Lymphocytes # (Manual) 0.6 K/mm3 (1.2-5.4) L 08/13/20 10:07 Abs React Lymphs (Man) 0.0 K/mm3 08/13/20 10:07 Monocytes # (Manual) 0.3 K/mm3 (0.0-0.8) 08/13/20 10:07 Eosinophils # (Manual) 0.1 K/mm3 (0.0-0.4) 08/13/20 10:07 Basophils # (Manual) 0.0 K/mm3 (0.0-0.1) 08/13/20 10:07 Metamyelocytes # 0.0 K/mm3 08/13/20 10:07 Myelocytes # 0.0 K/mm3 08/13/20 10:07 Promyelocytes # 0.0 K/mm3 08/13/20 10:07 Blast Cells # 0.0 K/mm3 08/13/20 10:07 WBC Morphology Not Reportable 08/13/20 10:07 Hypersegmented Neuts Not Reportable 08/13/20 10:07 Hyposegmented Neuts Not Reportable 08/13/20 10:07 Hypogranular Neuts Not Reportable 08/13/20 10:07 Smudge Cells Not Reportable 08/13/20 10:07 Toxic Granulation Not Reportable 08/13/20 10:07 Toxic Vacuolation Not Reportable 08/13/20 10:07 Dohle Bodies Not Reportable 08/13/20 10:07 Pelger-Huet Anomaly Not Reportable 08/13/20 10:07 Quin Rods Not Reportable 08/13/20 10:07 Platelet Estimate Consistent w auto 08/13/20 10:07 Clumped Platelets Not Reportable 08/13/20 10:07 Plt Clumps, EDTA Not Reportable 08/13/20 10:07 Large Platelets Not Reportable 08/13/20 10:07 Giant Platelets Not Reportable 08/13/20 10:07 Platelet Satelliting Not Reportable 08/13/20 10:07 Plt Morphology Comment Not Reportable 08/13/20 10:07 RBC Morphology Normal 08/13/20 10:07 Dimorphic RBCs Not Reportable 08/13/20 10:07 Polychromasia Not Reportable 08/13/20 10:07 Hypochromasia Not Reportable 08/13/20 10:07 Poikilocytosis Not Reportable 08/13/20 10:07 Anisocytosis Not Reportable 08/13/20 10:07 Microcytosis Not Reportable 08/13/20 10:07 Macrocytosis Not Reportable 08/13/20 10:07 Spherocytes Not Reportable 08/13/20 10:07 Pappenheimer Bodies Not Reportable 08/13/20 10:07 Sickle Cells Not Reportable 08/13/20 10:07 Target Cells Not Reportable 08/13/20 10:07 Tear Drop Cells Not Reportable 08/13/20 10:07 Ovalocytes Not Reportable 08/13/20 10:07 Helmet Cells Not Reportable 08/13/20 10:07 Holder-Holt Bodies Not Reportable 08/13/20 10:07 [place] Rings Not Reportable 08/13/20 10:07 Nory Cells Not Reportable 08/13/20 10:07 Bite Cells Not Reportable 08/13/20 10:07 Crenated Cell Not Reportable 08/13/20 10:07 Elliptocytes Not Reportable 08/13/20 10:07 Acanthocytes (Spur) Not Reportable 08/13/20 10:07 Rouleaux Not Reportable 08/13/20 10:07 Hemoglobin C Crystals Not Reportable 08/13/20 10:07 Schistocytes Not Reportable 08/13/20 10:07 Malaria parasites Not Reportable 08/13/20 10:07 Kris Bodies Not Reportable 08/13/20 10:07 Hem Pathologist Commnt No 08/13/20 10:07 PT 14.7 Sec. (12.2-14.9) 08/13/20 10:07 INR 1.13 (0.87-1.13) 08/13/20 10:07 APTT 30.6 Sec. (24.2-36.6) 08/13/20 10:07 Thrombin Time 16.3 Sec. (15.1-19.6) 08/13/20 10:07 Sodium 140 mmol/L (137-145) 08/13/20 10:07 Potassium 5.2 mmol/L (3.6-5.0) H 08/13/20 10:07 Chloride 102.9 mmol/L (98-107) 08/13/20 10:07 Carbon Dioxide 30 mmol/L (22-30) 08/13/20 10:07 Anion Gap 12 mmol/L 08/13/20 10:07 BUN 17 mg/dL (9-20) 08/13/20 10:07 Creatinine 1.5 mg/dL (0.8-1.3) H 08/13/20 10:07 Estimated GFR 58 ml/min 08/13/20 10:07 BUN/Creatinine Ratio 11 % 08/13/20 10:07 Glucose 148 mg/dL (75-100) H 08/13/20 10:07 POC Glucose 121 mg/dL (70-105) H 08/13/20 11:14 Hemoglobin A1c 6.3 % (4-6) H 08/14/20 04:33 Calcium 10.0 mg/dL (8.4-10.2) 08/13/20 10:07 Magnesium 2.00 mg/dL (1.7-2.3) 08/13/20 10:07 Total Creatine Kinase 56 units/L (55-170) 08/13/20 10:07 CK-MB (CK-2) 1.2 ng/mL (0.0-4.0) 08/13/20 10:07 CK-MB (CK-2) Rel Index 2.1 (0-4) 08/13/20 10:07 Troponin T < 0.010 ng/mL (0.00-0.029) 08/13/20 10:07 Triglycerides 122 mg/dL (2-149) 08/14/20 04:33 Cholesterol 132 mg/dL (50-199) 08/14/20 04:33 LDL Cholesterol Direct 88 mg/dL (50-130) 08/14/20 04:33 HDL Cholesterol 29 mg/dL (40-59) L 08/14/20 04:33 Cholesterol/HDL Ratio 4.55 % 08/14/20 04:33 Purcell/IV: Voiding Method Urinal IV Catheter Type [Left Hand] Peripheral IV Active Medications - Current Medications Current Medications: Generic Name Dose Route Start Last Admin Trade Name Freq PRN Reason Stop Dose Admin Acetaminophen 650 mg 08/13/20 12:50 Tylenol PO Q4H PRN Pain, Mild (1-3) Amlodipine Besylate 10 mg 08/14/20 10:00 08/14/20 10:55 Amlodipine PO 10 mg QDAY NOEMI Administration Aspirin 325 mg 08/14/20 10:00 08/14/20 10:55 Aspirin PO 325 mg QDAY NOEMI Administration Atorvastatin Calcium 40 mg 08/13/20 22:00 08/13/20 21:56 Lipitor PO 40 mg QHS NOEMI Administration Bisacodyl 10 mg 08/13/20 12:50 Dulcolax TX QDAY PRN Constipation Clonidine HCl 0.1 mg 08/13/20 13:00 Catapres PO PRN NOEMI Clopidogrel Bisulfate 75 mg 08/14/20 10:00 08/14/20 10:55 Plavix PO 75 mg QDAY NOEMI Administration Hydralazine HCl 100 mg 08/13/20 16:44 08/14/20 05:22 Apresoline PO 100 mg Q8HR NOEMI Administration Magnesium Hydroxide 30 ml 08/13/20 12:50 Milk Of Magnesia PO Q4H PRN Constipation Metoclopramide HCl 10 mg 08/13/20 12:50 Reglan PO Q6H PRN Nausea And Vomiting Metoprolol Tartrate 50 mg 08/13/20 22:00 08/14/20 10:55 Metoprolol PO 50 mg BID NOEMI Administration Ondansetron HCl 4 mg 08/13/20 12:50 Zofran IV Q8H PRN Nausea And Vomiting Promethazine HCl 25 mg 08/13/20 12:50 Phenergan [place] Q6H PRN Nausea And Vomiting Sodium Chloride 10 ml 08/13/20 12:50 Sodium Chloride Flush Syringe 10 Ml IV PRN PRN LINE FLUSH Valsartan 160 mg 08/13/20 22:00 08/14/20 10:55 Diovan PO 160 mg BID NOEMI Administration Nutrition/Malnutrition Assess - Dietary Evaluation Nutrition/Malnutrition Findings: Nutrition Notes Start: 08/14/20 11:22 Freq: Status: Active Protocol: Document 08/14/20 11:22 EN (Rec: 08/14/20 11:36 EN [email or web address]) Co-Sign 08/14/20 11:22 LM Nutrition Notes Need for Assessment generated from: MD Order,Education Initial or Follow up Assessment Current Diagnosis Hypertension,Stroke Other Pertinent Diagnosis TIA Current Diet Mechanical Soft Labs/Tests 08/13: K+ 5.2, Cr 1.5, Glu 148 08/14: A1c 6.3, HDL 29 Pertinent Medications Reviewed Height 5 ft 6 in Weight 88.1 kg [place] Body Weight (kg) 64.54 BMI 31.3 Intake Prior to Admission Good Weight Status Obese Subjective/Other Information RD consulted for CVA diet education. RD provided education on heart healthy diet (CVA) and carbohydrates ( pre-diabetes AEB A1c). Pt verbalized understanding. Pt reports eating well BED [employer] and denies N/V/D and abd pain. Pt reports good appetite and eating well without difficulty . RD noticed full breakfast untouched on table at bedside. Pt awaiting swallow screen by LEASE ATTENDANT prior to diet advancement . Burn Absent Trauma Absent GI Symptoms None Food Allergy No Current % PO Fair (50-74%) Minimum of two criteria No physical signs of malnutrition #2 Nutrition Diagnosis Inadequate oral intake Etiology CVA and TIA diagnosis As Evidenced by Signs and Symptoms awaiting LEASE ATTENDANT consult and untouched breakfast at bedside #1 Nutrition Diagnosis Food and nutrition-related knowledge deficit Etiology no prior education on heart healthy diet and consistent CHO As Evidenced by Signs and Symptoms pt verbalizing questions and need for education, A1C 6.3 Is patient on ventilator? No Is Patient Ambulatory and/or Out of Bed Yes REE-([place]-[facility]. or-ambulatory/OOB) [ 0319.875 [id number]] Kcal/Kg value to use for calculation 20 Approximate Energy Requirements Using 1762 kcal/Kg Calculation Used for Recommendations Kcal/kg Additional Notes Protein: 0.8-1.0 g/kg AdBW 76. 32kg (61-76g) Fluid: 1 ml/kcal Nutrition Intervention Change Diet Order: Continue diet order, advance texture as recommended by LEASE ATTENDANT Teaching Recipient Patient Learning Readiness Good Teaching Methods Discussion,Handout Response to Teaching Verbalize understanding Education Handouts Provided CVA Heart Healthy and Diabetes /Plate method Barriers to Learning No Barriers RD phone number provided Yes Patient aware of follow up options Yes Goal #1 Meet 75% of energy and protein needs Anticipated Discharge Needs: unable to determine at this time Follow-Up By: 08/16/20 Additional Comments F/u for intakes and diet texture advancement
[2020-08-15 05:04] LABS: Hematocrit 39.4 % (35.5-45.6); Hemoglobin 12.6 gm/dl (11.8-15.2); Mean Corpuscular HGB Conc 32 % (32-34); Mean Corpuscular Volume 73 fl (84-94); Platelet Count 231 K/mm3 (140-440); Red Blood Count 5.44 M/mm3 (3.65-5.03); Red Cell Distribution Width 13.4 % (13.2-15.2)
[2020-08-15] MEDS: hydrALAZINE 100 MG TAB PO SCH ×3 (05:06→22:01)
[2020-08-15 05:18] LABS: Calcium 9.3 mg/dL (8.4-10.2)
--- NOTE | 2020-08-15 09:18 | Progress Note ---
Assessment and Plan Assessment and plan: Patient is a 59-year-old male with past medical history of hypertension, CAD status post stent placement in the past. Recently seen in the hospital for aphasia that was ongoing for 3 days. At that time was noted to have hypertensive emergency with blood pressure 257/159 was treated with Cardene drip for hypertensive emergency subsequently discharged on blood pressure medications including clonidine as needed. He reports that he has been compliant with his medication although he tells me that his blood pressure at home this morning was 220, and 250 systolic over 102. He reports that yesterday was 120 systolic. He states that shortly after taking the blood pressure not feeling well he took his medications which he assures me that he takes every day including the clonidine although clonidine was ordered as needed. He reported feeling right hand clumsiness unable to write and feeling unwell. He denied any chest pain nausea vomiting or diarrhea. Recently he had had an MRI which was negative except for old stroke that was revealed. And a carotid Doppler which was also negative. While in the ER his symptoms has started improving. No other complaint reported. On my examination following administration of some blood pressure medication his blood pressure had come down to 140 systolic. MRI- Head IMPRESSION: 1. There has been interval development of a 6 to 7 mm acute infarct involving the superior left mary from 08/08/2020. 2. There is otherwise continued extensive chronic microvascular angiopathy as described. MRA HEAD IMPRESSION: 1. No significant abnormalities are identified on MRA head. Hypertensive emergency Hypertensive encephalopathy with residual right-sided paresis Right-sided hemiparesis DIYA with vasomotor nephropathy- worsening Hyperkalemia CVA- Superior left mary. Advised patient of finding Question of compliance with medications CAD Plan 08/14: Continue Statin and ASA and also Plavix. BP is somewhat improved, continue to monitor. Repeat renal studies. 08/15: start on gentle hydration, recheck renal function at 3pm if improving can discharge, will also stop valsartan and increase BB to TID Resume home medications Stroke protocol with aspirin and statin We will adjust blood pressure medication for better control I do not think clonidine is an ideal medication for this patient Will change from Coreg to metoprolol 50 TID We will up increase hydralazine 100 mg every 8 Continue clonidine as needed We will provide blood pressure education Neurology evaluation Counseling provided to the patient CT of the head reviewed no acute pathology noted Anticipate discharge in a.m. History Interval history: Patient seen and examined resting comfortable, no new complaints Hospitalist Physical - Physical exam Narrative exam: VITAL SIGNS: Reviewed. GENERAL: The patient appears normally developed otherwise, no distress vital signs as documented. HEAD: No signs of head trauma. EYES: Pupils are equal. Extraocular motions intact. EARS: Hearing grossly intact. MOUTH: Oropharynx is normal. NECK: No adenopathy, no JVD. CHEST: Chest with clear breath sounds bilaterally. No wheezes, rales, or rhonchi. CARDIAC: Regular rate and rhythm. S1 and S2, without murmurs, gallops, or rubs. VASCULAR: No Edema. Peripheral pulses normal and equal in all extremities. ABDOMEN: Soft, non tender and non distended. No rebound or guarding, and no masses palpated. Bowel Sounds normal. MUSCULOSKELETAL: Good range of motion of all major joints. Extremities without clubbing, cyanosis or edema. NEUROLOGIC EXAM: Alert and oriented x 3 No focal sensory or strength deficits. Speech normal. Follows commands. PSYCHIATRIC: Mood normal. SKIN: detail exam as documented in skin assessment - Constitutional Vitals: Temp Pulse Resp BP Pulse Ox 98.9 F 91 H 20 149/87 96 08/15/20 07:21 08/15/20 07:21 08/15/20 07:21 08/15/20 07:21 08/15/20 07:21 HEART Score - HEART Score Troponin: Troponin T < 0.010 ng/mL (0.00-0.029) 08/13/20 10:07 Results - Labs CBC & Chem 7: 08/15/20 04:24 08/15/20 04:24 Labs: Laboratory Last Values WBC 6.8 K/mm3 (4.5-11.0) 08/15/20 04:24 RBC 5.44 M/mm3 (3.65-5.03) H 08/15/20 04:24 Hgb 12.6 gm/dl (11.8-15.2) 08/15/20 04:24 Hct 39.4 % (35.5-45.6) 08/15/20 04:24 MCV 73 fl (84-94) L 08/15/20 04:24 MCH 23 pg (28-32) L 08/15/20 04:24 MCHC 32 % (32-34) 08/15/20 04:24 RDW 13.4 % (13.2-15.2) 08/15/20 04:24 Plt Count 231 K/mm3 (140-440) 08/15/20 04:24 Add Manual Diff Complete 08/13/20 10:07 Total Counted 100 08/13/20 10:07 Seg Neuts % (Manual) 86.0 % (40.0-70.0) H 08/13/20 10:07 Band Neutrophils % 0 % 08/13/20 10:07 Lymphocytes % (Manual) 9.0 % (13.4-35.0) L 08/13/20 10:07 Reactive Lymphs % (Man) 0 % 08/13/20 10:07 Monocytes % (Manual) 4.0 % (0.0-7.3) 08/13/20 10:07 Eosinophils % (Manual) 1.0 % (0.0-4.3) 08/13/20 10:07 Basophils % (Manual) 0 % (0.0-1.8) 08/13/20 10:07 Metamyelocytes % 0 % 08/13/20 10:07 Myelocytes % 0 % 08/13/20 10:07 Promyelocytes % 0 % 08/13/20 10:07 Blast Cells % 0 % 08/13/20 10:07 Nucleated RBC % Not Reportable 08/13/20 10:07 Seg Neutrophils # Man 6.0 K/mm3 (1.8-7.7) 08/13/20 10:07 Band Neutrophils # 0.0 K/mm3 08/13/20 10:07 Lymphocytes # (Manual) 0.6 K/mm3 (1.2-5.4) L 08/13/20 10:07 Abs React Lymphs (Man) 0.0 K/mm3 08/13/20 10:07 Monocytes # (Manual) 0.3 K/mm3 (0.0-0.8) 08/13/20 10:07 Eosinophils # (Manual) 0.1 K/mm3 (0.0-0.4) 08/13/20 10:07 Basophils # (Manual) 0.0 K/mm3 (0.0-0.1) 08/13/20 10:07 Metamyelocytes # 0.0 K/mm3 08/13/20 10:07 Myelocytes # 0.0 K/mm3 08/13/20 10:07 Promyelocytes # 0.0 K/mm3 08/13/20 10:07 Blast Cells # 0.0 K/mm3 08/13/20 10:07 WBC Morphology Not Reportable 08/13/20 10:07 Hypersegmented Neuts Not Reportable 08/13/20 10:07 Hyposegmented Neuts Not Reportable 08/13/20 10:07 Hypogranular Neuts Not Reportable 08/13/20 10:07 Smudge Cells Not Reportable 08/13/20 10:07 Toxic Granulation Not Reportable 08/13/20 10:07 Toxic Vacuolation Not Reportable 08/13/20 10:07 Dohle Bodies Not Reportable 08/13/20 10:07 Pelger-Huet Anomaly Not Reportable 08/13/20 10:07 Quin Rods Not Reportable 08/13/20 10:07 Platelet Estimate Consistent w auto 08/13/20 10:07 Clumped Platelets Not Reportable 08/13/20 10:07 Plt Clumps, EDTA Not Reportable 08/13/20 10:07 Large Platelets Not Reportable 08/13/20 10:07 Giant Platelets Not Reportable 08/13/20 10:07 Platelet Satelliting Not Reportable 08/13/20 10:07 Plt Morphology Comment Not Reportable 08/13/20 10:07 RBC Morphology Normal 08/13/20 10:07 Dimorphic RBCs Not Reportable 08/13/20 10:07 Polychromasia Not Reportable 08/13/20 10:07 Hypochromasia Not Reportable 08/13/20 10:07 Poikilocytosis Not Reportable 08/13/20 10:07 Anisocytosis Not Reportable 08/13/20 10:07 Microcytosis Not Reportable 08/13/20 10:07 Macrocytosis Not Reportable 08/13/20 10:07 Spherocytes Not Reportable 08/13/20 10:07 Pappenheimer Bodies Not Reportable 08/13/20 10:07 Sickle Cells Not Reportable 08/13/20 10:07 Target Cells Not Reportable 08/13/20 10:07 Tear Drop Cells Not Reportable 08/13/20 10:07 Ovalocytes Not Reportable 08/13/20 10:07 Helmet Cells Not Reportable 08/13/20 10:07 [place] Bodies Not Reportable 08/13/20 10:07 [place] Rings Not Reportable 08/13/20 10:07 Nory Cells Not Reportable 08/13/20 10:07 Bite Cells Not Reportable 08/13/20 10:07 Crenated Cell Not Reportable 08/13/20 10:07 Elliptocytes Not Reportable 08/13/20 10:07 Acanthocytes (Spur) Not Reportable 08/13/20 10:07 Rouleaux Not Reportable 08/13/20 10:07 Hemoglobin C Crystals Not Reportable 08/13/20 10:07 Schistocytes Not Reportable 08/13/20 10:07 Malaria parasites Not Reportable 08/13/20 10:07 Kris Bodies Not Reportable 08/13/20 10:07 Hem Pathologist Commnt No 08/13/20 10:07 PT 14.7 Sec. (12.2-14.9) 08/13/20 10:07 INR 1.13 (0.87-1.13) 08/13/20 10:07 APTT 30.6 Sec. (24.2-36.6) 08/13/20 10:07 Thrombin Time 16.3 Sec. (15.1-19.6) 08/13/20 10:07 Sodium 139 mmol/L (137-145) 08/15/20 04:24 Potassium 4.2 mmol/L (3.6-5.0) 08/15/20 04:24 Chloride 103.4 mmol/L (98-107) 08/15/20 04:24 Carbon Dioxide 25 mmol/L (22-30) 08/15/20 04:24 Anion Gap 15 mmol/L 08/15/20 04:24 BUN 19 mg/dL (9-20) 08/15/20 04:24 Creatinine 1.6 mg/dL (0.8-1.3) H 08/15/20 04:24 Estimated GFR 54 ml/min 08/15/20 04:24 BUN/Creatinine Ratio 12 % 08/15/20 04:24 Glucose 115 mg/dL (75-100) H 08/15/20 04:24 POC Glucose 121 mg/dL (70-105) H 08/13/20 11:14 Hemoglobin A1c 6.3 % (4-6) H 08/14/20 04:33 Calcium 9.3 mg/dL (8.4-10.2) 08/15/20 04:24 Magnesium 2.00 mg/dL (1.7-2.3) 08/13/20 10:07 Total Creatine Kinase 56 units/L (55-170) 08/13/20 10:07 CK-MB (CK-2) 1.2 ng/mL (0.0-4.0) 08/13/20 10:07 CK-MB (CK-2) Rel Index 2.1 (0-4) 08/13/20 10:07 Troponin T < 0.010 ng/mL (0.00-0.029) 08/13/20 10:07 Triglycerides 122 mg/dL (2-149) 08/14/20 04:33 Cholesterol 132 mg/dL (50-199) 08/14/20 04:33 LDL Cholesterol Direct 88 mg/dL (50-130) 08/14/20 04:33 HDL Cholesterol 29 mg/dL (40-59) L 08/14/20 04:33 Cholesterol/HDL Ratio 4.55 % 08/14/20 04:33 Purcell/IV: Voiding Method Toilet IV Catheter Type [Left Hand] Peripheral IV Active Medications - Current Medications Current Medications: Generic Name Dose Route Start Last Admin Trade Name Freq PRN Reason Stop Dose Admin Acetaminophen 650 mg 08/13/20 12:50 Tylenol PO Q4H PRN Pain, Mild (1-3) Amlodipine Besylate 10 mg 08/14/20 10:00 08/14/20 10:55 Amlodipine PO 10 mg QDAY NOEMI Administration Aspirin 325 mg 08/14/20 10:00 08/14/20 10:55 Aspirin PO 325 mg QDAY NOEMI Administration Atorvastatin Calcium 40 mg 08/13/20 22:00 08/14/20 21:17 Lipitor PO 40 mg QHS NOEMI Administration Bisacodyl 10 mg 08/13/20 12:50 Dulcolax RI QDAY PRN Constipation Clonidine HCl 0.1 mg 08/13/20 13:00 Catapres PO PRN NOEMI Clopidogrel Bisulfate 75 mg 08/14/20 10:00 08/14/20 10:55 Plavix PO 75 mg QDAY NOEMI Administration Hydralazine HCl 100 mg 08/13/20 16:44 08/15/20 05:06 Apresoline PO 100 mg Q8HR NOEMI Administration Sodium Chloride 1,000 mls @ 100 mls/hr 08/15/20 09:15 Nacl 0.9% 1000 Ml IV DIRECT NOEMI Magnesium Hydroxide 30 ml 08/13/20 12:50 Milk Of Magnesia PO Q4H PRN Constipation Metoclopramide HCl 10 mg 08/13/20 12:50 Reglan PO Q6H PRN Nausea And Vomiting Metoprolol Tartrate 50 mg 08/15/20 14:00 Metoprolol PO TID NOEMI Ondansetron HCl 4 mg 08/13/20 12:50 Zofran IV Q8H PRN Nausea And Vomiting Promethazine HCl 25 mg 08/13/20 12:50 Phenergan RI Q6H PRN Nausea And Vomiting Sodium Chloride 10 ml 08/13/20 12:50 Sodium Chloride Flush Syringe 10 Ml IV PRN PRN LINE FLUSH Nutrition/Malnutrition Assess - Dietary Evaluation Nutrition/Malnutrition Findings: Nutrition Notes Start: 08/14/20 11:22 Freq: Status: Active Protocol: Document 08/14/20 11:22 EN (Rec: 08/14/20 11:36 EN [email or web address]) Co-Sign 08/14/20 11:22 LM Nutrition Notes Need for Assessment generated from: MD Order,Education Initial or Follow up Assessment Current Diagnosis Hypertension,Stroke Other Pertinent Diagnosis TIA Current Diet Mechanical Soft Labs/Tests 08/13: K+ 5.2, Cr 1.5, Glu 148 08/14: A1c 6.3, HDL 29 Pertinent Medications Reviewed Height 5 ft 6 in Weight 88.1 kg [place] Body Weight (kg) 64.54 BMI 31.3 Intake Prior to Admission Good Weight Status Obese Subjective/Other Information RD consulted for CVA diet education. RD provided education on heart healthy diet (CVA) and carbohydrates ( pre-diabetes AEB A1c). Pt verbalized understanding. 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 Pt reports good appetite and eating well without difficulty . RD noticed full breakfast untouched on table at bedside. Pt awaiting swallow screen by MUSIC SOUND LIGHT TECHNICIAN prior to diet advancement . Burn Absent Trauma Absent GI Symptoms None Food Allergy No Current % PO Fair (50-74%) Minimum of two criteria No physical signs of malnutrition #2 Nutrition Diagnosis Inadequate oral intake Etiology CVA and TIA diagnosis As Evidenced by Signs and Symptoms awaiting MUSIC SOUND LIGHT TECHNICIAN consult and untouched breakfast at bedside #1 Nutrition Diagnosis Food and nutrition-related knowledge deficit Etiology no prior education on heart healthy diet and consistent CHO As Evidenced by Signs and Symptoms pt verbalizing questions and need for education, A1C 6.3 Is patient on ventilator? No Is Patient Ambulatory and/or Out of Bed Yes [facility] [ 0853.875 [id number]] Kcal/Kg value to use for calculation 20 Approximate Energy Requirements Using 1762 kcal/Kg Calculation Used for Recommendations Kcal/kg Additional Notes Protein: 0.8-1.0 g/kg AdBW 76. 32kg (61-76g) Fluid: 1 ml/kcal Nutrition Intervention Change Diet Order: Continue diet order, advance texture as recommended by MUSIC SOUND LIGHT TECHNICIAN Teaching Recipient Patient Learning Readiness Good Teaching Methods Discussion,Handout Response to Teaching Verbalize understanding Education Handouts Provided CVA Heart Healthy and Diabetes /Plate method Barriers to Learning No Barriers RD phone number provided Yes Patient aware of follow up options Yes Goal #1 Meet 75% of energy and protein needs Anticipated Discharge Needs: unable to determine at this time Follow-Up By: 08/16/20 Additional Comments F/u for intakes and diet texture advancement
[2020-08-15] MEDS ORDERED: cloNIDine 0.1 MG TAB PO PRN ×2 (12:00)
[2020-08-15] MEDS: ASPIRIN 325 MG TAB PO SCH (14:58)
[2020-08-15] MEDS: amLODIPine 10 MG TAB PO SCH (14:59)
[2020-08-15] MEDS: CLOPIDOGREL 75 MG TAB PO SCH (14:59)
[2020-08-15] MEDS: METOPROLOL TARTRATE 50 MG TAB PO SCH ×2 (15:01→22:02)
[2020-08-15] MEDS: SODIUM CHLORIDE 0.9% 1000 ML 1,000 ML IV SCH (16:17)
[2020-08-16] MEDS: SODIUM CHLORIDE 0.9% 1000 ML 1,000 ML IV SCH ×2 (02:10→12:40)
[2020-08-16 05:21] LABS: Hematocrit 40.7 % (35.5-45.6); Hemoglobin 12.9 gm/dl (11.8-15.2); Mean Corpuscular HGB Conc 32 % (32-34); Mean Corpuscular Volume 73 fl (84-94); Platelet Count 231 K/mm3 (140-440); Red Cell Distribution Width 13.4 % (13.2-15.2)
[2020-08-16 05:39] LABS: BUN/Creatinine Ratio 13; Blood Urea Nitrogen 18 mg/dL (9-20); Calcium 9.1 mg/dL (8.4-10.2); Hemolysis Index 5
[2020-08-16] MEDS: hydrALAZINE 100 MG TAB PO SCH ×2 (06:02→14:00)
[2020-08-16] MEDS: METOPROLOL TARTRATE 100 MG TAB PO SCH ×2 (08:13→14:00)
[2020-08-16] MEDS: amLODIPine 10 MG TAB PO SCH (09:14)
[2020-08-16] MEDS: ASPIRIN 325 MG TAB PO SCH (09:14)
[2020-08-16] MEDS: CLOPIDOGREL 75 MG TAB PO SCH (09:14)
[2020-08-16 13:45] VITALS: BP 160/99
--- NOTE | 2020-08-16 15:11 | Discharge Summary ---
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 Notified:: cm Consult to Dietitian/Nutrition [CONS] Routine Physician Instructions: Reason For Exam: Reason for Consult: Nutrition Recommendations Reason for Consult: Diet education Occupational Therapy Evaluate and Treat [CONS] Routine Comment: Reason For Exam: Neuro deficits Physical Therapy Evaluation and Treat [CONS] Routine Comment: Reason For Exam: Neuro deficits 08/13/20 16:12 Speech Therapy Evaluation and Treat [CONS] Routine Reason For Exam: swallowing eval 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 Recently seen in the hospital for aphasia that was ongoing for 3 days. At that time was noted to have hypertensive emergency with blood pressure 257/159 was treated with Cardene drip for hypertensive emergency subsequently discharged on blood pressure medications including clonidine as needed. He reports that he has been compliant with his medication although he tells me that his blood pressure at home this morning was 220, and 250 systolic over 102. He reports that yesterday was 120 systolic. He states that shortly after taking the blood pressure not feeling well he took his medications which he assures me that he takes every day including the clonidine although clonidine was ordered as needed. He reported feeling right hand clumsiness unable to write and feeling unwell. He denied any chest pain nausea vomiting or diarrhea. Recently he had had an MRI which was negative except for old stroke that was revealed. And a carotid Doppler which was also negative. While in the ER his symptoms has started improving. No other complaint reported. On my examination following administration of some blood pressure medication his blood pressure had come down to 140 systolic. MRI- Head IMPRESSION: 1. There has been interval development of a 6 to 7 mm acute infarct involving the superior left mary from 08/08/2020. 2. There is otherwise continued extensive chronic microvascular angiopathy as described. MRA HEAD IMPRESSION: 1. No significant abnormalities are identified on MRA head. Hypertensive emergency Hypertensive encephalopathy with residual right-sided paresis Right-sided hemiparesis DIYA with vasomotor nephropathy- worsening Hyperkalemia CVA- Superior left mary. Advised patient of finding Question of compliance with medications CAD Plan 08/14: Continue Statin and ASA and also Plavix. BP is somewhat improved, continue to monitor. Repeat renal studies. 08/15: start on gentle hydration, recheck renal function at 3pm if improving can discharge, will also stop valsartan and increase BB to TID 08/16: Renal function is improving off discussed with the patient extensively on clinical diagnosis about the stroke management of the stroke patient will be discharged on aspirin and statin also added other medications to assist and changes to blood pressure medication and advised patient to keep a tablet blood pressure. Of also place primary care physicians for him to follow. Resume home medications Stroke protocol with aspirin and statin We will adjust blood pressure medication for better control I do not think clonidine is an ideal medication for this patient Will change from Coreg to metoprolol 50 TID We will up increase hydralazine 100 mg every 8 Continue clonidine as needed We will provide blood pressure education Neurology evaluation Counseling provided to the patient CT of the head reviewed no acute pathology noted Anticipate discharge in a.m. Disposition: DC-01 TO HOME OR SELFCARE Time spent for discharge: 35-minute Core Measure Documentation - Palliative Care Palliative Care/ Comfort Measures: Not Applicable - Core Measures Any of the following diagnoses?: stroke - Stroke Discharge Requirements Statin for LDL = or >70 mg/dl on DC: Yes Anticoag for atrial fib/atrial flutter: Not Applicable Antithrombotic for ischemic stroke: Yes Exam - Physical Exam Narrative exam: VITAL SIGNS: Reviewed. GENERAL: The patient appears normally developed otherwise, no distress vital signs as documented. HEAD: No signs of head trauma. EYES: Pupils are equal. Extraocular motions intact. EARS: Hearing grossly intact. MOUTH: Oropharynx is normal. NECK: No adenopathy, no JVD. CHEST: Chest with clear breath sounds bilaterally. No wheezes, rales, or rhonchi. CARDIAC: Regular rate and rhythm. S1 and S2, without murmurs, gallops, or rubs. VASCULAR: No Edema. Peripheral pulses normal and equal in all extremities. ABDOMEN: Soft, non tender and non distended. No rebound or guarding, and no masses palpated. Bowel Sounds normal. MUSCULOSKELETAL: Good range of motion of all major joints. Extremities without clubbing, cyanosis or edema. NEUROLOGIC EXAM: Alert and oriented x 3 No focal sensory or strength deficits. Speech normal. Follows commands. PSYCHIATRIC: Mood normal. SKIN: detail exam as documented in skin assessment - Constitutional Vitals: Temp Pulse Resp BP Pulse Ox 98.5 F 72 18 160/99 96 08/16/20 11:35 08/16/20 11:35 08/16/20 11:35 08/16/20 11:35 08/16/20 11:35 Plan Activity: advance as tolerated, fall precautions Diet: low fat Special Instructions: record daily weights, record daily BP diary Follow up with: PRIMARY CARE, [Primary Care Provider] - 3-5 Days [facility] [Provider Group] - 7 Days [facility] [Provider Group] - 7 Days Prescriptions: AtorvaSTATin [Lipitor] 80 mg PO QHS #30 tablet hydrALAZINE [Apresoline TAB] 100 mg PO Q8HR #90 tab Metoprolol [Lopressor TAB] 100 mg PO TID #90 tablet Clopidogrel [Plavix] 75 mg PO QDAY #30 tablet
== END 2020-08-16 17:11 | disposition home or self-care (01) | DRG 64 ==
LOC: ED 08:59 → 4A 12:50 → OBSVTOIN 08-14 09:53
PROVIDERS: ADMIT Internal Medicine; ATTEND Internal Medicine
DX: I63.9 Cerebral infarction, unspecified (principal); N17.0 Acute kidney failure with tubular necrosis; I67.4 Hypertensive encephalopathy; I16.1 Hypertensive emergency; G81.91 Hemiplegia, unspecified affecting right dominant side; I10 Essential (primary) hypertension; Z79.82 Long term (current) use of aspirin; E78.5 Hyperlipidemia, unspecified; Z95.5 Presence of coronary angioplasty implant and graft; I25.10 Atherosclerotic heart disease of native coronary artery without angina pectoris; Z79.01 Long term (current) use of anticoagulants; R29.701 NIHSS score 1; E87.5 Hyperkalemia
CPT/HCPCS: 36415; 70450; 70544; 70551; 80048; 80061; 82550; 82553; 82962; 83036; 83735; 84484; 85007; 85025; 85027; 85610; 85670; 85730; 93005; G0378; A9270-GY; J7030

== ENCOUNTER 2021-07-06 10:10 | Emergency (ER) | payer OTHER ==
--- NOTE | 2021-07-06 10:48 | Emergency Department Report ---
HPI - General Chief Complaint: Psych Time Seen by Provider: 07/06/21 10:36 - HPI HPI: Room 12 G The patient 60-year-old male present with chief complaint of depression. Patient states for the past 3 to 4 months he has felt depressed intermittently. Patient denies any physical pain. Patient denies suicidal or homicidal ideation. Patient denies auditory or visual hallucinations. Patient states he is never seen a psychiatrist for these complaints. ED Past Medical Hx - Past Medical History Hx Hypertension: Yes Additional medical history: Cardiac stent - Surgical History Hx Coronary Stent: Yes (1 stent (2018)) Additional Surgical History: Cardiac stent - Family History Family history: no significant - Social History Smoking Status: Never Smoker Substance Use Type: None (Denies illicit drug use) - Medications Home Medications: Home Medications Medication Instructions Recorded Confirmed Last Taken Type Aspirin 325 mg PO QDAY #30 tablet 08/09/20 08/13/20 08/13/20 16:09 Rx cloNIDine [Catapres] 0.1 mg PO PRN #30 tablet 08/09/20 08/13/20 08/12/20 Rx AtorvaSTATin [Lipitor] 80 mg PO QHS #30 tablet 08/16/20 Unknown Rx Clopidogrel [Plavix] 75 mg PO QDAY #30 tablet 08/16/20 Unknown Rx Metoprolol [Lopressor TAB] 100 mg PO TID #90 tablet 08/16/20 Unknown Rx hydrALAZINE [Apresoline TAB] 100 mg PO Q8HR #90 tab 08/16/20 Unknown Rx amLODIPine 10 mg PO QDAY #90 tablet 07/06/21 Unknown Rx ED Review of Systems ROS: Stated complaint: DEPRESSION Other details as noted in HPI Constitutional: no symptoms reported Eyes: denies: eye pain ENT: denies: throat pain Respiratory: no symptoms reported Cardiovascular: denies: chest pain Endocrine: no symptoms reported Gastrointestinal: denies: abdominal pain Genitourinary: denies: dysuria Musculoskeletal: denies: back pain Neurological: denies: headache Psychiatric: depression. denies: auditory hallucinations, visual hallucinations, homicidal thoughts, suicidal thoughts Physical Exam - Physical Exam Vital Signs: Vital Signs 07/06/21 10:16 Temperature 98.7 F Pulse Rate 84 Respiratory 16 Rate Blood Pressure 176/108 [Left] O2 Sat by Pulse 100 Oximetry Physical Exam: GENERAL: The patient is well-developed well-nourished male sitting in chair not appearing to be in acute distress. [] HEENT: Normocephalic. Atraumatic. Extraocular motions are intact. Patient has moist mucous membranes. NECK: Supple. Trachea midline CHEST/LUNGS: Clear to auscultation. There is no respiratory distress noted. HEART/CARDIOVASCULAR: Regular. There is no tachycardia. There is no gallop rub or murmur. ABDOMEN: Abdomen is soft, nontender. Patient has normal bowel sounds. There is no abdominal distention. SKIN: There is no rash. There is no edema. There is no diaphoresis. NEURO: The patient is awake, alert, and oriented. The patient is cooperative. The patient has no focal neurologic deficits. The patient has normal speech. GCS 15 MUSCULOSKELETAL: There is no evidence of acute injury. ED Course Vital Signs 07/06/21 10:16 Temperature 98.7 F Pulse Rate 84 Respiratory 16 Rate Blood Pressure 176/108 [Left] O2 Sat by Pulse 100 Oximetry ED Medical Decision Making - Lab Data Result diagrams: 07/06/21 10:46 07/06/21 10:46 Laboratory Tests 07/06/21 07/06/21 07/06/21 10:46 10:46 10:46 WBC 6.4 RBC 5.13 H Hgb 12.1 Hct 37.5 MCV 73 L MCH 24 L MCHC 32 RDW 13.6 Plt Count 213 Lymph % (Auto) 27.0 Ada % (Auto) 7.2 Eos % (Auto) 1.6 Baso % (Auto) 0.9 Lymph # (Auto) 1.7 Ada # (Auto) 0.5 Eos # (Auto) 0.1 Baso # (Auto) 0.1 Seg Neutrophils % 63.3 Seg Neutrophils # 4.1 Sodium 140 Potassium 4.6 Chloride 100.3 Carbon Dioxide 27 Anion Gap 17 BUN 15 Creatinine 1.0 Estimated GFR > 60 BUN/Creatinine Ratio 15 Glucose 139 H Calcium 10.0 Total Bilirubin 0.30 AST 16 ALT 14 Alkaline Phosphatase 67 Total Protein 7.8 Albumin 4.5 Albumin/Globulin Ratio 1.4 Salicylates < 0.3 L Acetaminophen Plasma/Serum Alcohol 07/06/21 07/06/21 10:46 10:46 WBC RBC Hgb Hct MCV MCH MCHC RDW Plt Count Lymph % (Auto) Ada % (Auto) Eos % (Auto) Baso % (Auto) Lymph # (Auto) Ada # (Auto) Eos # (Auto) Baso # (Auto) Seg Neutrophils % Seg Neutrophils # Sodium Potassium Chloride Carbon Dioxide Anion Gap BUN Creatinine Estimated GFR BUN/Creatinine Ratio Glucose Calcium Total Bilirubin AST ALT Alkaline Phosphatase Total Protein Albumin Albumin/Globulin Ratio Salicylates Acetaminophen 5.0 L Plasma/Serum Alcohol < 0.01 - Differential Diagnosis Depression Critical care attestation.: If time is entered above; I have spent that time in minutes in the direct care of this critically ill patient, excluding procedure time. ED Disposition Clinical Impression: Mood disorder, Hypertension Disposition: 01 HOME / SELF CARE / HOMELESS Is pt being admited?: No Does the pt Need Aspirin: No Condition: Stable Instructions: Hypertension (ED), Managing Your Hypertension Additional Instructions: Return to the emergency department should you develop worsening symptoms, inability to tolerate food or liquids, high fever or any other concerns Prescriptions: amLODIPine 10 mg PO QDAY #90 tablet Time of Disposition: 12:34
[2021-07-06 11:02] LABS: Basophils # (Auto) 0.1 K/mm3 (0.0-0.1); Basophils % (Auto) 0.9 % (0.0-1.8); Eosinophils # (Auto) 0.1 K/mm3 (0.0-0.4); Eosinophils % (Auto) 1.6 % (0.0-4.3); Hematocrit 37.5 % (35.5-45.6); Hemoglobin 12.1 gm/dl (11.8-15.2); Lymphocytes # (Auto) 1.7 K/mm3 (1.2-5.4); Mean Corpuscular HGB Conc 32 % (32-34); Mean Corpuscular Volume 73 fl (84-94); Monocytes # (Auto) 0.5 K/mm3 (0.0-0.8); Monocytes % (Auto) 7.2 % (0.0-7.3); Platelet Count 213 K/mm3 (140-440); Red Blood Count 5.13 M/mm3 (3.65-5.03); Red Cell Distribution Width 13.6 % (13.2-15.2)
[2021-07-06 11:23] LABS: Alanine Aminotransferase 14 units/L (7-56); Albumin 4.5 g/dL (3.9-5); BUN/Creatinine Ratio 15; Blood Urea Nitrogen 15 mg/dL (9-20); Hemolysis Index 9
[2021-07-06 11:50] VITALS: BP 157/96
== END 2021-07-06 13:00 | disposition home or self-care (01) ==
LOC: ED 10:10
DX: F39 Unspecified mood [affective] disorder (principal); I10 Essential (primary) hypertension
CPT/HCPCS: 36415; 80053; 80320; 85025; 99283; 99284; G0480